=== PATIENT | female | born 1960 | race Asian ===

== ENCOUNTER 2017-05-29 12:08 | Emergency (ER) | payer BC ==
[~2017-05-29] VITALS: Ht 152.4 cm; Wt 48.3 kg
[2017-05-29 12:12] VITALS: TEMP 36.9; Ht 152.4 cm; Wt 48.3 kg
[2017-05-29] MEDS ORDERED: IBUPROFEN 200 MG TAB PO STA (13:51)
[2017-05-29] MEDS ORDERED: ACETAMINOPHEN 500 MG TAB PO STA (13:51)
--- NOTE | 2017-05-29 14:45 | EMERGENCY ROOM VISIT NOTE ---
History Report prepared by Agustina: Shameka Esteban Under the Supervision of: Dr. Luiz Ayers M.D. First contact with patient: 12:41 Chief Complaint: HEAD PAIN Stated Complaint: EYE PAIN History of Present Illness The patient is a 56 year old female with no significant past medical history who presents to the ED with a cc of headache beginning 2 weeks ago. Initially her eyes were feeling dry and she was using Refresh eye drops without any relief. She developed a headache in the front of her head and pressure in her eyes. Her pressure is worse behind her left eye. The patient reports burning pain in her eyes and blurry vision. She rates her pain as a 5/10 in severity. She was seen at [facility] and sent to the ED for further evaluation. She does wear glasses. She does not wear contacts. Source of History: patient Onset: 2 weeks ago Position: head Symptom Intensity: 5/10 Quality: pressure, burning Timing: worsening Note: Pt has bilateral eye pain/pressure and blurry vision. Review of Systems See HPI for pertinent positives and negatives. A total of ten systems were reviewed and were otherwise negative. Past Medical & Surgical Medical Problems: (1) No significant active problems Family History No pertinent history stated. Social History Smoking Status: Never Smoker Smokeless Tobacco Use: No Alcohol Use: none Drug Use: none Current/Historical Medications No Active Prescriptions or Reported Meds Allergies Coded Allergies: No Known Allergies (Unverified , 05/29/17) Physical Exam Vital Signs Date Time Temp Pulse Resp B/P (MAP) Pulse Ox O2 Delivery O2 Flow Rate FiO2 05/29/17 14:51 55 18 122/71 100 05/29/17 12:12 36.9 72 18 122/79 99 Room Air Physical Exam GENERAL: Awake, alert, anxious-appearing, tearful, NAD HENT: Normocephalic, atraumatic. EYES: Normal conjunctiva. Sclera non-icteric. Exotropic left eye noted, no APD, PERRL, EOMI, vision intact, no visual field deficits, no hyphema, no hypopyon. Vision 20/50 in left eye, pressure 18 in left eye. Vision 20/20 in right eye, pressure 11 in right eye. No periorbital swelling, no proptosis. NECK: Supple. No nuchal rigidity. FROM. RESPIRATORY: CTAB, no rhonchi, wheezing, crackles CARDIAC: RRR, no MRG ABDOMEN: Soft, NTND, BS+ MSK: No chest wall TTP, no LE edema NEURO: GCS 15, CN 2-12 intact, moves all 4s on command. Good upper and lower extremity strength, no sensory deficits SKIN: No rash or jaundice noted. Medical Decision & Procedures Medications Administered Medications (Trade) Dose Ordered Sig/Cherelle Route Start Time Stop Time Status Last Admin Dose Admin Ibuprofen (Advil Tab) 400 mg NOW STAT PO 05/29/17 13:51 05/29/17 13:52 DC 05/29/17 14:14 400 MG Acetaminophen (Tylenol Tab) 1,000 mg NOW STAT PO 05/29/17 13:51 05/29/17 13:52 DC 05/29/17 14:15 1,000 MG ED Course 1241: The patient was evaluated in room B6. A complete history and physical exam was performed. 1328: I reassessed the patient and checked the pressures in her eyes. Please see above for my findings. 1351: Tylenol 1000 mg PO, Advil 400 mg PO 1412: I discussed the patient's case with Dr. Esqueda of ophthalmology. He will follow up with the patient in the office tomorrow. 1429: I reassessed the patient. She is feeling better and resting comfortably. I discussed the results and treatment plan with the patient. I answered all pertaining questions that she had. She expressed understanding and verbalized agreement. The patient will be discharged home. Medical Decision The patient is a 56 year old female with no significant past medical history who presents to the ED with a cc of headache beginning 2 weeks ago. Differential diagnoses includes conjunctivitis, iritis, glaucoma, retinal or vitreous detachment, senescent visual changes, pseudotumor. Patient was seen and evaluated the bedside. Patient was very re-anxious and concerned about vision loss. Patient stated she had felt a pressure behind her eyes. She denies any recent change in medications. Patient had had a change in her prescription back in August. On exam patient had no APD, EOM were intact, no fixed pupil, not proptotic, no hyphema or hypopyon. Patient has no visual field deficits. 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 Patient was 20/50 in the left eye and 20/20 in the right eye. Given all these signs patient also did have pressures of 11 in the right and 18 in the left. Less likely to be stroke given her lack of other symptoms and just patient changes. Patient less likely to be glaucoma she is not had a fixed pupil or photophobia with normal pressures. Less likely to be a conjunctivitis. Less likely to be pseudotumor cerebri as the patient does not have abnormal pressures the patient is not obese. Patient has no focal neuro deficit. I did speak with the physician that she is to see tomorrow Dr. Garcia. He agreed nothing to do at this time and would see her in his clinic tomorrow patient was given strict follow-up, discharge, and return precautions. Patient agreed with plan of care and was safely discharged home Medication Reconcilliation Current Medication List: was personally reviewed by me Blood Pressure Screening Patient's blood pressure: Normal blood pressure Consults Time Called: 1408 Consulting Physician: Dr. Esqueda Returned Call: [phone] I discussed the patient's case with Dr. Esqueda of ophthalmology. He will follow up with the patient in the office tomorrow. Impression Primary Impression: Eye pressure Additional Impression: Headache Scribe Attestation The scribe's documentation has been prepared under my direction and personally reviewed by me in its entirety. I confirm that the note above accurately reflects all work, treatment, procedures, and medical decision making performed by me. Departure Information Dispostion Home / Self-Care Prescriptions No Active Prescriptions or Reported Meds Referrals No Doctor, Assigned (PCP) Patient Instructions My [facility] Additional Instructions Please return to the emergency department if you have worsening or recurrent symptoms not amenable to at-home treatment. Please call for a follow-up appointment with her primary care physician. Please take your medications as prescribed. If you have other concerns and/or complaints please feel free to also call your primary care physician's office or return the ED for further evaluation, management, and treatment. Please keep your eye appointment tomorrow. You have been examined and treated today on an emergency basis only. This is not a substitute for, or an effort to provide, complete comprehensive medical care. It is impossible to recognize and treat all injuries or illnesses in a single emergency department visit. It is therefore important that you follow up closely with [facility]. Call as soon as possible for an appointment. Thank you for your time and consideration. I look forward to speaking with you again soon. Please don't hesitate to call us if you have any questions. Problem Qualifiers Additional Impression: Headache Headache type: unspecified Headache chronicity pattern: acute headache Intractability: not intractable Qualified Codes: R51 - Headache
[2017-05-29 14:51] VITALS: BP 122/71; PULSE 55; O2SAT 100
== END 2017-05-29 14:52 | disposition home or self-care (01) ==
LOC: C.EDB 12:09
DX: R51 Headache (principal); H53.8 Other visual disturbances; H57.13 Ocular pain, bilateral

== ENCOUNTER 2017-07-05 12:38 | Observation (INO) | payer BC ==
[~2017-07-05] VITALS: Ht 154.9 cm; Wt 47.8 kg
--- NOTE | 2017-07-05 13:02 | EMERGENCY ROOM VISIT NOTE ---
History Report prepared by Agustina: Jayesh Little Under the Supervision of: Dr. Ab Shen D.O. First contact with patient: 12:53 Chief Complaint: CHEST PAIN Stated Complaint: CHEST PAIN, SENT BY History of Present Illness The patient is a 56 year old female who presents to the Emergency Room with complaints of centralized chest pain that began 4 hours ago. At this time, she began to feel as if her heart was "speeding up" while experiencing palpitations. This lasted for about 2 minutes, and then her pain began. She states that her pain is unchanged with exertion, movement, or breathing. She denies any leg pain or swelling. She notes that she feels mildly short of breath. She took 2 Aspirin this morning, one two hours ago and another 1 hour ago. She denies any medical problems and does not take any medications. Source of History: patient Onset: 4 hours ago Position: chest Symptom Intensity: moderate Quality: ache Timing: constant Associated Symptoms: + SOB Note: She denies any leg pain or swelling. Review of Systems See HPI for pertinent positives & negatives. A total of 10 systems reviewed and were otherwise negative. Past Medical & Surgical Medical Problems: (1) No significant active problems Family History Patient reports no known family medical history. Social History Smoking Status: Never Smoker Smokeless Tobacco Use: No Alcohol Use: none Drug Use: none Current/Historical Medications No Active Prescriptions or Reported Meds Allergies Coded Allergies: No Known Allergies (Unverified , 07/05/17) Physical Exam Vital Signs Date Time Temp Pulse Resp B/P (MAP) Pulse Ox O2 Delivery O2 Flow Rate FiO2 07/05/17 14:01 90 16 142/80 100 Nasal Cannula 2.0 07/05/17 13:18 73 07/05/17 13:09 95 Room Air 07/05/17 13:09 95 Room Air 07/05/17 13:09 95 Room Air 07/05/17 12:43 36.5 87 20 117/80 100 Room Air Physical Exam GENERAL: Patient is awake, alert, and in no acute distress. Patient is resting comfortably and showing no signs of anxiety EYES: The conjunctivae are clear. The pupils are round and reactive. EARS, NOSE, MOUTH AND THROAT: The nose is without any evidence of any deformity. Mucous membranes are moist tongue is midline NECK: The neck is nontender and supple. RESPIRATORY: Normal respiratory effort is noted there is no evidence of wheezing rhonchi or rales CARDIOVASCULAR: Regular rate and rhythm noted there no murmurs rubs or gallops normal S1 normal S2 GASTROINTESTINAL: The abdomen is soft. Bowel sounds are present in all quadrants. Abdomen is nontender MUSCULOSKELETAL/EXTREMITIES: There is no evidence of gross deformity full range of motion is noted in the hips and shoulders SKIN: There is no obvious evidence of any rash. There are no petechiae, pallor or cyanosis noted. NEUROLOGIC: Patient is awake alert and oriented x3. Medical Decision & Procedures ER Provider Diagnostic Interpretation: Radiology results as stated below per my review and radiologist interpretation: CHEST ONE VIEW PORTABLE CLINICAL HISTORY: Atypical chest pain COMPARISON STUDY: No previous studies for comparison. FINDINGS: The cardiac and mediastinal contours are normal. There is no evidence of focal pulmonary consolidation. There is no evidence of failure. No pleural effusions are visualized.[ IMPRESSION: No active disease in the chest. Electronically signed by: Michael Schuler M.D. 07/05/2017 2:13 PM Dictated Date/Time: 07/05/2017 2:13 PM Laboratory Results Test 07/05/17 13:00 07/05/17 13:06 Prothrombin Time 10.5 SECONDS (9.0-12.0) Prothromb Time International Ratio 1.0 (0.9-1.1) Estimated Average Glucose 108 mg/dl Hemoglobin A1c 5.4 % (4.5-5.6) Direct Bilirubin 0.1 mg/dl (0-0.2) Total Creatine Kinase 152 U/L (26-192) Creatine Kinase MB 1.8 ng/ml (0.5-3.6) Creatine Kinase MB Ratio 1.2 (0-3.0) Triglycerides Level 105 mg/dl (0-150) Cholesterol Level 268 mg/dl (0-200) HDL Cholesterol 89 mg/dl LDL Cholesterol, Calculated 158 mg/dl VLDL Cholesterol, Calculated 21 mg/dl Cholesterol/HDL Ratio 3.0 Lipase 116 U/L (73-393) Thyroid Stimulating Hormone (TSH) 1.200 uIu/ml (0.300-4.500) Human Chorionic Gonadotropin, Qual NEG (NEG) Bedside D-Dimer 219 ng/mlFEU (0-450) Bedside Troponin I 0.230 ng/ml (0-0.045) Laboratory results per my review. Medications Administered Medications (Trade) Dose Ordered Sig/Cherelle Route Start Time Stop Time Status Last Admin Dose Admin Nitroglycerin (Nitro-Dur 0.6 Mg/Hr Patch) 1 patch NOW STAT TD 07/05/17 14:31 07/06/17 10:23 DC 07/05/17 14:46 1 PATCH Potassium Chloride (Klor-Con M10) 40 meq NOW STAT PO 07/05/17 14:26 07/05/17 15:00 DC 07/05/17 15:39 40 MEQ ECG Indication: chest pain Rate (beats per minute): 73 Rhythm: normal sinus Findings: no ectopy, other (No acute STS abnormalities) Comparison ECG Date: no prior available ED Course 1253: The patient was evaluated in room B3B. A complete history and physical examination were performed. 1347: Upon reevaluation, the patient is resting. I discussed results and treatment plan with her. She verbalizes agreement and understanding. I spoke with Faith GONZÁLES of the [facility]. The patient will be evaluated for further management and care. Medical Decision Differential diagnosis: Etiologies such as cardiac ischemia, aortic dissection, pulmonary embolism, pneumonia, pneumothorax, musculoskeletal, infections, pericarditis, myocarditis , esophageal rupture, gastrointestinal, as well as others were entertained. Nursing notes reviewed. The patient is a 56-year-old female who presented to the emergency department for an episode which occurred earlier. The patient describes an episode of palpitations which was followed by a pressure or burning sensation in her chest. The patient was not found have dysrhythmia. Her EKG did not show any acute ischemic changes however her initial troponin was elevated. The patient had no discomfort at this time. She was treated with aspirin previously and also given nitroglycerin in the emergency department. I discussed the patient's laboratory and radiographic studies [facility] They have agreed to evaluate the patient in the emergency department for further management and disposition. At this time I do feel the patient's condition and presentation could be consistent with an acute coronary syndrome. Medication Reconcilliation Current Medication List: was personally reviewed by me Blood Pressure Screening Patient's blood pressure: Normal blood pressure Blood pressure disposition: Did not require urgent referral Consults Time Called: 1345 Consulting Physician: Faith GOZNÁLES - [facility] Returned Call: [phone] I discussed the patient's case with her. The patient will be evaluated for further management. Impression Primary Impression: Chest pain Additional Impressions: Elevated troponin Palpitations Scribe Attestation The scribe's documentation has been prepared under my direction and personally reviewed by me in its entirety. I confirm that the note above accurately reflects all work, treatment, procedures, and medical decision making performed by me. Departure Information Dispostion Being Evaluated By Hospitalist Prescriptions No Active Prescriptions or Reported Meds Referrals Azalia Rain DO (PCP) Patient Instructions My [facility] Problem Qualifiers Primary Impression: Chest pain Chest pain type: unspecified Qualified Codes: R07.9 - Chest pain, unspecified
[2017-07-05 13:19] LABS: BASO % 0.2 %; BASO ABS # 0.01 K/uL (0-0.2); COMPLETE YES; EOS % 0.4 %; IG% 0.2 %; LYMPH % 17.8 %; LYMPH ABS # 0.87 K/uL (1.2-3.4); MEAN CELL VOLUME 96.2 fL (80-100); MEAN CORPUSCULAR HGB CONC 33.3 g/dl (32-36); MONO % 3.9 %; NEUT % 77.5 %; PLATELET COUNT 176 K/uL (130-400); RED BLOOD COUNT 4.16 M/uL (4.2-5.4); WHITE BLOOD COUNT 4.89 K/uL (4.8-10.8)
[2017-07-05 13:26] LABS: POINT OF CARE TROPONIN I 0.23 ng/ml (0-0.045)
[2017-07-05 13:32] LABS: PROTHROMBIN TIME (PATIENT) 10.5 SECONDS (9.0-12.0)
[2017-07-05 13:33] LABS: BUN/CREATININE RATIO 19.8 (10-20); CALCIUM 9.2 mg/dl (8.5-10.1); CREATININE 0.89 mg/dl (0.60-1.20); POTASSIUM 3.5 mmol/L (3.5-5.1)
[2017-07-05 13:39] LABS: CKMB/CK RATIO 1.2 (0-3.0)
[2017-07-05 13:48] LABS: PREG INTERNAL NEGATIVE QC NEG CLEAR BACKGROUND; PREG INTERNAL POSITIVE QC POS CONTROL LINE
--- NOTE | 2017-07-05 14:14 | DIAGNOSTIC IMAGING REPORT ---
CHEST ONE VIEW PORTABLE CLINICAL HISTORY: Atypical chest pain COMPARISON STUDY: No previous studies for comparison. FINDINGS: The cardiac and mediastinal contours are normal. There is no evidence of focal pulmonary consolidation. There is no evidence of failure. No pleural effusions are visualized.[ IMPRESSION: No active disease in the chest. Electronically signed by: Michael Schuler M.D. 07/05/2017 2:13 PM Dictated Date/Time: 07/05/2017 2:13 PM
[2017-07-05] MEDS ORDERED: POTASSIUM CHLORIDE 10 MEQ TABCR PO STA (14:26)
[2017-07-05] MEDS ORDERED: NITROGLYCERIN 0.6 MG/HR PATCH TD STA (14:31)
--- NOTE | 2017-07-05 15:26 | ECHOCARDIOGRAM REPORT ---
*NOTICE TO RECEIVING CONSTITUTION PARTY AGENCY This information is strictly Confidential and protected under [place] law. [place] law prohibits you from making any further disclosure of this information unless further disclosure is expressly permitted by the written consent of the person to whom it pertains or is authorized by law. A general authorization for the release of medical or other information is not sufficient for this purpose. Hospital accepts no responsibility if the information is made available to any other person, INCLUDING THE PATIENT. Interpretation Summary * Name: FABIOLA MAJOR Study Date: 07/05/2017 02:28 PM BP: 142/80 mmHg * Patient Location: .ED HR: 90 * : 1960 (M/d/yyyy) Gender: Female Height: 61 in * Age: 56 yrs Ethnicity: Weight: 106 lb * Ordering Physician: Richard Rodas * Referring Physician: Azalia Rain * Performed By: Elis Ruiz RDCS * * Reason For Study: CHEST PAIN * BSA: 1.4 m2 * -- Conclusions -- * Normal LV chamber size and wall thickness. * Normal LV systolic function, EF 65-70%. * No segmental left ventricular wall motion abnormalities are noted. * Grade I diastolic dysfunction. * Mild mitral regurgitation. * Trace tricuspid regurgitation. Procedure Details * A complete two-dimensional transthoracic echocardiogram was performed (2D, M-mode, Doppler and color flow Doppler). Left Ventricle * The left ventricle is normal in size. * There is normal left ventricular wall thickness. * Ejection Fraction = 65-70%. * Left ventricular systolic function is normal. * No segmental left ventricular wall motion abnormalities are noted. * The left ventricular wall motion is normal. Right Ventricle * The right ventricular cavity size is normal (basal dimension <4.2 cm in right ventricular apical 4-chamber view). * The right ventricular systolic function is normal as assessed by tricuspid annular plane systolic excursion (TAPSE) (normal >1.5 cm). Atria * The left atrial size is normal. * Right atrial size is normal. * No ASD detected; PFO is not assessed. Mitral Valve * The mitral valve anatomy is normal. * There is no mitral valve stenosis. * There is mild mitral regurgitation. Tricuspid Valve * The tricuspid valve anatomy is normal. * There is no tricuspid stenosis. * There is trace tricuspid regurgitation. Aortic Valve * The aortic valve is not well visualized. * No hemodynamically significant valvular aortic stenosis. * There is no significant aortic regurgitation. Pulmonic Valve * The pulmonary valve is not well seen, but the Doppler examination is normal without significant regurgitation or stenosis. Great Vessels * The aortic root and proximal ascending aorta are normal sized. Pericardium/Pleural * There is no pericardial effusion. Left Ventricular Diastolic Function * Grade I diastolic dysfunction, (abnormal relaxation pattern). MMode 2D Measurements and Calculations IVSd 0.54 cm IVSs 1.1 cm LVIDd 4.2 cm LVIDs 2.6 cm LVPWd 0.74 cm LVPWs 1.3 cm IVS/LVPW 0.73 FS 38.0 % EDV(Teich) 78.7 ml ESV(Teich) 24.8 ml EF(Teich) 68.5 % EDV(cubed) 74.2 ml ESV(cubed) 17.7 ml EF(cubed) 76.1 % % IVS thick 109.9 % % LVPW thick 81.5 % LV mass(C)d 76.2 grams LV mass(C)dI 52.8 grams/m\S\2 LV mass(C)s 95.5 grams LV mass(C)sI 66.2 grams/m\S\2 CO(Teich) 4.0 l/min CI(Teich) 2.8 l/min/m\S\2 SV(Teich) 53.9 ml SI(Teich) 37.4 ml/m\S\2 CO(cubed) 4.2 l/min CI(cubed) 2.9 l/min/m\S\2 SV(cubed) 56.5 ml SI(cubed) 39.2 ml/m\S\2 ACS 1.8 cm LA dimension 2.8 cm asc Aorta Diam 2.8 cm LVOT diam 1.8 cm LVOT area 2.5 cm\S\2 LVAd ap4 18.2 cm\S\2 LVLd ap4 6.3 cm EDV(MOD-sp4) 45.2 ml LVAs ap4 9.3 cm\S\2 LVLs ap4 5.1 cm ESV(MOD-sp4) 14.6 ml EF(MOD-sp4) 67.7 % LVAd ap2 17.6 cm\S\2 LVLd ap2 6.5 cm EDV(MOD-sp2) 42.0 ml LVAs ap2 8.9 cm\S\2 LVLs ap2 5.1 cm ESV(MOD-sp2) 13.9 ml EF(MOD-sp2) 66.9 % CO(MOD-sp4) 2.3 l/min CI(MOD-sp4) 1.6 l/min/m\S\2 SV(MOD-sp4) 30.6 ml SI(MOD-sp4) 21.2 ml/m\S\2 CO(MOD-sp2) 2.1 l/min CI(MOD-sp2) 1.4 l/min/m\S\2 SV(MOD-sp2) 28.1 ml SI(MOD-sp2) 19.5 ml/m\S\2 Doppler Measurements and Calculations MV E max tammy 78.6 cm/sec MV A max tammy 96.5 cm/sec MV E/A 0.81 MV dec time 0.15 sec Ao V2 max 131.4 cm/sec Ao max PG 6.9 mmHg Ao max PG (full) 4.0 mmHg PREETI(V,A) 1.6 cm\S\2 PREETI(V,D) 1.6 cm\S\2 LV V1 max PG 2.9 mmHg LV V1 max 85.4 cm/sec MR max tammy 435.7 cm/sec MR max PG 75.9 mmHg PA V2 max 62.6 cm/sec PA max PG 1.6 mmHg TR max tammy 188.9 cm/sec
[2017-07-05 15:41] LABS: MAGNESIUM 2.6 mg/dl (1.8-2.4); THYROID STIMULATING HORMONE 1.2 uIu/ml (0.300-4.500)
[2017-07-05 15:58] VITALS: BP 104/69; PULSE 61; TEMP 36.7; O2SAT 97
[2017-07-05 16:00] VITALS: O2SAT 98
[2017-07-05] MEDS ORDERED: IV FLUIDS COMPLETED PRN (16:00)
--- NOTE | 2017-07-05 16:54 | History and Physical ---
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 Patient tried to alleviate symptoms by taking 325 mg of aspirin x 2. Patient was seen and evaluated in the ED and resolution of symptoms. Chest X ray negative. No evidence of tachycardia or arrhythmia. No obvious EKG changes suggestive of myocardial infarction with negative D-dimer, however has positive 1st troponin of 0.230. Echocardiogram performed. * Normal LV chamber size and wall thickness. * Normal LV systolic function, EF 65-70%. * No segmental left ventricular wall motion abnormalities are noted. * Grade I diastolic dysfunction. * Mild mitral regurgitation. * Trace tricuspid regurgitation. Cardiology consulted. Dr. Sibley recommended Nitro patch which was ordered. No heparin drip to be initiated at this time. Will continue to trend troponins. May consider heparin drip if troponins becomes elevated or exacerbation of symptoms. NPO after midnight for stress test on 07/06/17 Past Medical/Surgical History Medical Problems: (1) No significant active problems Status: Chronic Family History FH: myocardial infarction MOTHER Social History Smoking Status: Never Smoker Smokeless Tobacco Use: No Drug Use: none Multi-Drug Resistant Organisms History of MDRO: No Allergies Coded Allergies: No Known Allergies (Unverified , 07/05/17) Home Medications No Active Prescriptions or Reported Meds Review of Systems Constitutional: No fever Eyes: No worsening of vision ENT: No hearing loss Respiratory: + shortness of breath, No cough, No sputum, No wheezing Cardiovascular: + chest pain, + palpitations, No edema Abdomen: No pain, No nausea, No vomiting Musculoskeletal: No swelling Genitourinary - Female: No dysuria Neurologic: No numbness/tingling Psychiatric: No substance abuse Endocrine: No fatigue Hematologic / Lymphatic: No abnormal bleeding/bruising Integumentary: No rash Physical Exam Vital Signs Date Time Temp Pulse Resp B/P (MAP) Pulse Ox O2 Delivery O2 Flow Rate FiO2 07/05/17 15:58 36.7 61 16 104/69 (81) 97 Room Air 11/16/17 15:45 72 18 95/60 96 Room Air 07/05/17 15:45 72 18 95/60 96 07/05/17 14:46 73 14 105/70 100 Room Air 07/05/17 14:01 90 16 142/80 100 Nasal Cannula 2.0 07/05/17 13:18 73 07/05/17 13:09 95 Room Air 07/05/17 13:09 95 Room Air 07/05/17 13:09 95 Room Air 07/05/17 12:43 36.5 87 20 117/80 100 Room Air General Appearance: no apparent distress Head: normocephalic, atraumatic Eyes: normal inspection, EOMI, sclerae normal ENT: normal ENT inspection, hearing grossly normal, TMs normal, pharynx normal Neck: no JVD, no carotid bruits, trachea midline Respiratory/Chest: chest non-tender, lungs clear, normal breath sounds, no respiratory distress, no accessory muscle use Cardiovascular: regular rate, rhythm, no edema, no JVD, no murmur Abdomen/GI: normal bowel sounds, non tender, soft Back: normal inspection, no CVA tenderness, no muscle spasm, normal range of motion Extremities/Musculoskelatal: normal inspection, no calf tenderness, normal capillary refill, no pedal edema, normal range of motion Neurologic/Psych: no motor/sensory deficits, normal mood/affect, oriented x 3 Skin: normal color, warm/dry, no rash Diagnostics Laboratory Results Results Past 24 Hours Test 07/05/17 13:00 07/05/17 13:06 07/05/17 14:14 Range/Units White Blood Count 4.89 4.8-10.8 K/uL Red Blood Count 4.16 4.2-5.4 M/uL Hemoglobin 13.3 12.0-16.0 g/dL Hematocrit 40.0 37-47 % Mean Corpuscular Volume 96.2 80-100 fL Mean Corpuscular Hemoglobin 32.0 25-34 pg Mean Corpuscular Hemoglobin Concent 33.3 32-36 g/dl Platelet Count 176 130-400 K/uL Mean Platelet Volume 9.0 7.4-10.4 fL Neutrophils (%) (Auto) 77.5 % Lymphocytes (%) (Auto) 17.8 % Monocytes (%) (Auto) 3.9 % Eosinophils (%) (Auto) 0.4 % Basophils (%) (Auto) 0.2 % Neutrophils # (Auto) 3.79 1.4-6.5 K/uL Lymphocytes # (Auto) 0.87 1.2-3.4 K/uL Monocytes # (Auto) 0.19 0.11-0.59 K/uL Eosinophils # (Auto) 0.02 0-0.5 K/uL Basophils # (Auto) 0.01 0-0.2 K/uL RDW Standard Deviation 44.1 36.4-46.3 fL RDW Coefficient of Variation 12.7 11.5-14.5 % Immature Granulocyte % (Auto) 0.2 % Immature Granulocyte # (Auto) 0.01 0.00-0.02 K/uL Prothrombin Time 10.5 9.0-12.0 SECONDS Prothromb Time International Ratio 1.0 0.9-1.1 Activated Partial Thromboplast Time 25.5 21.0-31.0 SECONDS Partial Thromboplastin Ratio 1.0 Sodium Level 139 136-145 mmol/L Potassium Level 3.5 3.5-5.1 mmol/L Chloride Level 103 98-107 mmol/L Carbon Dioxide Level 28 21-32 mmol/L Anion Gap 8.0 3-11 mmol/L Blood Urea Nitrogen 18 7-18 mg/dl Creatinine 0.89 0.60-1.20 mg/dl Est Creatinine Clear Calc Drug Dose 54.5 ml/min Estimated GFR () 85.2 Estimated GFR (Non- 73.5 BUN/Creatinine Ratio 19.8 10-20 Random Glucose 113 70-99 mg/dl Calcium Level 9.2 8.5-10.1 mg/dl Magnesium Level 2.6 1.8-2.4 mg/dl Total Bilirubin 0.7 0.2-1 mg/dl Direct Bilirubin 0.1 0-0.2 mg/dl Aspartate Amino Transf (AST/SGOT) 20 15-37 U/L Alanine Aminotransferase (ALT/SGPT) 31 12-78 U/L Alkaline Phosphatase 79 45-117 U/L Total Creatine Kinase 152 26-192 U/L Creatine Kinase MB 1.8 0.5-3.6 ng/ml Creatine Kinase MB Ratio 1.2 0-3.0 Total Protein 7.2 6.4-8.2 gm/dl Albumin 4.3 3.4-5.0 gm/dl Triglycerides Level 105 0-150 mg/dl Cholesterol Level 268 0-200 mg/dl HDL Cholesterol 89 mg/dl LDL Cholesterol, Calculated 158 mg/dl VLDL Cholesterol, Calculated 21 mg/dl Cholesterol/HDL Ratio 3.0 Lipase 116 73-393 U/L Thyroid Stimulating Hormone (TSH) 1.200 0.300-4.500 uIu/ml Human Chorionic Gonadotropin, Qual NEG NEG Bedside D-Dimer 219 0-450 ng/mlFEU Bedside Troponin I 0.230 0-0.045 ng/ml Diagnostic Radiology CXR The cardiac and mediastinal contours are normal. There is no evidence of focal pulmonary consolidation. There is no evidence of failure. No pleural effusions are visualized. 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 Patient tried to alleviate symptoms by taking 325 mg of aspirin x 2. Patient was seen and evaluated in the ED and resolution of symptoms. Chest X ray negative. No evidence of tachycardia or arrhythmia. No obvious EKG changes suggestive of myocardial infarction with negative D-dimer, however has positive 1st troponin of 0.230. Echocardiogram performed. * Normal LV chamber size and wall thickness. * Normal LV systolic function, EF 65-70%. * No segmental left ventricular wall motion abnormalities are noted. * Grade I diastolic dysfunction. * Mild mitral regurgitation. * Trace tricuspid regurgitation. Cardiology consulted. Dr. Sibley recommended Nitro patch which was ordered. No heparin drip to be initiated at this time. Will continue to trend troponins. May consider heparin drip if troponins becomes elevated or exacerbation of symptoms. NPO after midnight for stress test on 07/06/17 Electrolytes Serum Magnesium 2.6 within normal limits Serum potassium 3.5, given 40 meq PO potassium DVT ppx: SCDs for now Full Code, observation on telemetry Level of Care Telemetry Resuscitation Status FULL RESUSCITATION VTE Prophylaxis VTE Risk Assessment Done? Y/N: Yes Risk Level: Moderate
[2017-07-05 17:09] VITALS: BP 104/69; PULSE 61; TEMP 36.7; O2SAT 97; Ht 154.9 cm; Wt 47.8 kg
[2017-07-05 19:16] VITALS: BP 95/60; PULSE 63; TEMP 36.9; O2SAT 98
--- NOTE | 2017-07-05 19:25 | CARDIOLOGY CONSULTATION ---
DATE OF CONSULTATION: 07/05/2017 CONSULTATION REQUESTED BY: Dr. Richard Rodas. REASON FOR CONSULTATION: Chest pain. HISTORY OF PRESENT ILLNESS: Mrs. Rivero is a very pleasant 56-year-old woman who presented to [facility] today with a complaint of chest pain. 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 She states that while she was cutting vegetables all of a sudden she felt her heart started beating very fast in her chest. She states that it lasted for about 10 minutes and afterwards she developed some chest discomfort. While her heart was racing, she described it was thumping sensation in her chest and she denied any associated symptoms with it, specifically denied any associated chest pain, shortness of breath, lightheadedness, dizziness or syncope. She states not until the palpitations subsided that she started to feel chest discomfort. She describes the chest discomfort as a dull achy, as a dull pressure sensation in the center of her chest. It does not radiate. She states that once it started she took an aspirin and waited an hour, the discomfort persisted. She took another aspirin and went into her family physician's office. She was evaluated there but no notes are available at this time, and the patient was directed to the Emergency Department. In the Emergency Department, initial workup was unremarkable for EKG being normal and troponin being 0.2 and she was admitted for chest discomfort. The patient was seen and examined in the Emergency Department. At this point she is pain free and states that she is just very worried. She does admit that she has anxiety and she has had chest pain with anxiety in the past but states that this felt different. PAST SURGICAL HISTORY: Denies. MEDICAL ILLNESSES: Anxiety. FAMILY HISTORY: Remarkable for her mother developed heart disease at a later age. She is unsure of the heart condition, but she states she is otherwise at 85 years old in good health. SOCIAL HISTORY: She denies any alcohol, tobacco or recreational drug use. She is . She has 2 children, ages 21 and 15 who are both in good health. 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 She exercises infrequently. ALLERGIES: No known drug allergies. MEDICATIONS AN OUTPATIENT: Premarin cream. REVIEW OF SYSTEMS: As per HPI, all other review of systems reviewed and negative at this time. PHYSICAL EXAMINATION: VITALS: Temperature 36.7, pulse 61, respiratory rate 12, blood pressure 104/69. GENERAL: Awake, alert, oriented x3, mildly anxious during examination but no acute distress. HEENT: Normocephalic, atraumatic. Pupils equal, round, and reactive to light and accommodation. Extraocular muscles intact. Anicteric sclerae. Moist mucous membranes. NECK: No JVD, no bruit. CARDIOVASCULAR: Regular. No S4. Normal S1 and S2. No S3. No murmurs, rubs or gallops. PULMONARY: Clear to auscultation bilaterally. No rales, rhonchi, or wheezing. ABDOMEN: Bowel sounds x4, soft. No rebound, guarding, tenderness, no organomegaly. EXTREMITIES: No clubbing, cyanosis or edema. +2 pedal pulses bilaterally. SKIN: Warm and dry. TEST RESULTS AND LABORATORY STUDIES OF SIGNIFICANCE: Sodium 139, potassium 3.5, BUN 18, creatinine 0.9. Initial troponin of 0.2. CK of 152. A 12-lead EKG performed in the Emergency Department independently during this time shows normal sinus rhythm with sinus arrhythmia at 73 beats per minute, normal axis, normal intervals, normal study. A 2D echocardiogram was read as normal LV chamber size and wall thickness, normal LV systolic function without regional wall motion abnormalities, EF 65-70%, no segmental left ventricular wall motion abnormalities were noted, grade 1 diastolic dysfunction, mild mitral regurgitation, trace tricuspid regurgitation. IMPRESSION: 1. Palpitations. 2. Chest discomfort. RECOMMENDATIONS: It was my pleasure to see Mrs. Rivero in consultation today. From a cardiac standpoint, my suspicion is that the palpitations lead to some anxiety which then resulted in her chest discomfort. At this time, she has been in normal sinus rhythm on telemetry monitoring, any arrhythmias, so at this time we will admit her to telemetry. She will be made n.p.o. after midnight and will plan on stress test in the a.m., both to look for an inducible ischemia and for any inducible arrhythmias.
[2017-07-05 20:00] VITALS: O2SAT 98
--- NOTE | 2017-07-05 20:05 | Progress Note ---
Progress Note Date of Service Jul 05, 2017. Progress Note Toponins elevated from 0.230 to 1.1. Patient seen and examined. Was sleeping when awakened. Patient reports that she is feeling better than before. EKG obtained and no obvious ST elevations. However as per prior discussion with cardiology service, since troponins rising, will start heparin drip for NSTEMI.
[2017-07-05] MEDS ORDERED: HEPARIN 25,000 UNIT/500ML D5W 500 ML IV PRN (20:15)
[2017-07-05 23:52] VITALS: BP 101/68; PULSE 62; TEMP 36.4; O2SAT 98
[2017-07-06 03:29] VITALS: BP 93/55; PULSE 61; TEMP 36.5; O2SAT 99
[2017-07-06 03:39] LABS: BASO % 0.2 %; BASO ABS # 0.01 K/uL (0-0.2); COMPLETE YES; EOS % 1.7 %; HEMATOCRIT 35.8 % (37-47); IG% 0.2 %; LYMPH ABS # 1.38 K/uL (1.2-3.4); MEAN CORPUSCULAR HEMOGLOBIN 32.2 pg (25-34); MEAN CORPUSCULAR HGB CONC 33.5 g/dl (32-36); MEAN PLATELET VOLUME 8.9 fL (7.4-10.4); MONO % 5.3 %; NEUT % 59.6 %; PLATELET COUNT 159 K/uL (130-400); RED BLOOD COUNT 3.73 M/uL (4.2-5.4); WHITE BLOOD COUNT 4.18 K/uL (4.8-10.8)
[2017-07-06 03:56] LABS: PARTIAL THROMBOPLASTIN RATIO 2.7
[2017-07-06 04:04] LABS: CALCIUM 8.7 mg/dl (8.5-10.1); CREATININE 0.88 mg/dl (0.60-1.20); MAGNESIUM 2.4 mg/dl (1.8-2.4); POTASSIUM 3.9 mmol/L (3.5-5.1)
[2017-07-06 04:09] LABS: ALB/GLOB RATIO 1.2 (0.9-2)
[2017-07-06 05:26] VITALS: BP 104/71; PULSE 68; O2SAT 100
[2017-07-06 05:51] LABS: ESTIMATED AVERAGE GLUCOSE 108 mg/dl; HA1C FLAG Normal (Normal)
[2017-07-06 07:55] VITALS: BP 96/63; PULSE 66; TEMP 36.8; O2SAT 98
[2017-07-06 08:22] LABS: PARTIAL THROMBOPLASTIN RATIO 2.9
--- NOTE | 2017-07-06 10:22 | Cardiology Follow-Up ---
Subjective Subjective Date of Service: Jul 06, 2017. Pt evaluation today including: conversation w/ patient, physical exam, chart review, lab review, review of studies, review of inpatient medication list Additional Details: Pt seen and examined, states that she feels well. Only slight, transient discomfort this AM but fleeting. Denies sob, palpitations, lightheadedness or dizziness. Tele reviewed: sinus rhythm without arrhythmia or significant ectopy. Problem List Medical Problems: (1) Chest pain Status: Acute (2) Elevated troponin Status: Acute (3) Eye pressure Status: Acute (4) Headache Status: Acute (5) Palpitations Status: Acute Review of Systems Respiratory: No see HPI, No cough, No sputum, No wheezing, No shortness of breath, No dyspnea on exertion, No dyspnea at rest, No hemoptysis, No problem reported Cardiac: + chest pain, No see HPI, No orthopnea, No PND, No edema, No claudication, No palpitations, No problem reported Objective Vital Signs Last Vital Signs Documentation Date Time Temp Pulse Resp B/P (MAP) Pulse Ox O2 Delivery O2 Flow Rate FiO2 07/06/17 08:00 Room Air 07/06/17 07:55 36.8 66 14 96/63 (74) 98 07/05/17 14:01 2.0 Physical Exam: General Appearance: WD/WN, no apparent distress Eyes: bilateral eyes normal inspection, bilateral eyes PERRL, bilateral eyes EOMI ENT: normal ENT inspection, hearing grossly normal, pharynx normal Neck: supple, no adenopathy, thyroid normal, no JVD, no carotid bruits, trachea midline Respiratory/Chest: chest non-tender, lungs clear, normal breath sounds, no respiratory distress, no accessory muscle use Cardiovascular: regular rate, rhythm, no edema, no gallop, no JVD, no murmur Abdomen: normal bowel sounds, non tender, soft, no organomegaly Extremities: normal range of motion, non-tender, normal inspection, no pedal edema, no calf tenderness Neurologic/Psychiatric: box inspector II-XII nml as tested, no motor/sensory deficits, alert, normal mood/affect, oriented x 3 Skin: normal color, warm/dry, no rash Lymphatic: no adenopathy Assessment and Plan 1. chest pain resolved nonischemic stress echocardiogram 2. palpitations likely the nidus of the event no arrhythmia on monitor nor with stress testing ?SVT no new meds at this time will see as outpatient in 1-2 weeks and will likely place on monitor at that time my office will call to arrange follow up counseled to return to ED with further symptoms in attempt to catch on monitor 3. troponin elevation likely from tachycardic event no ischemic findings on stress echo could consider coronary CT as outpatient if recurrence of discomfort given lack of risk factors ok to d/c to home from cardiac standpoint
--- NOTE | 2017-07-06 10:48 | Discharge Instructions ---
Discharge Instructions Date of Service Jul 06, 2017. Admission Reason for Admission: Chest Pain, Elevated Troponin Discharge Discharge Diagnosis / Problem: chest pain, non-cardiac etiology Discharge Goals Goal(s): Prevent Disease Progression Activity Recommendations Activity Limitations: per Instructions/Follow-up section . Instructions / Follow-Up Instructions / Follow-Up Please return to ER if symptoms return You will need to contact [facility] Cardiology to set up a follow-up visit with Dr. Georgi Sibley in 1-2 weeks. You will be getting set up with an event monitor at this appointment. You have a follow-up appointment scheduled with Dr. Rain (PCP) on , 07/10 @ 10:45am for follow-up from this hospitalization. Please bring all paperwork with you to this appointment. It was a pleasure taking care of you! Call if you have any questions or problems. You can reach a [facility] hospitalist on duty at [facility] 24 hours a day by calling [phone]. Take care of yourself. Sierra Paige, [facility] Hospitalist Current Hospital Diet Patient's current hospital diet: AHA Diet (Heart Healthy) Discharge Diet Recommended Diet: Regular Diet Procedures Procedures Performed: stress echo-no inducible ischemia Pending Studies Studies pending at discharge: no Laboratory Results Hemoglobin A1c Test 07/05/17 13:00 Range/Units Estimated Average Glucose 108 mg/dl Hemoglobin A1c 5.4 4.5-5.6 % Lipid Panel Test 07/05/17 13:00 Range/Units Triglycerides Level 105 0-150 mg/dl Cholesterol Level 268 H 0-200 mg/dl HDL Cholesterol 89 mg/dl Cholesterol/HDL Ratio 3.0 LDL Cholesterol, Calculated 158 mg/dl Medical Emergencies . Who to Call and When: Medical Emergencies: If at any time you feel your situation is an emergency, please call 911 immediately. . Non-Emergent Contact Non-Emergency issues call your: Primary Care Provider . . "Provider Documentation" section prepared by Sierra Paige. . VTE Core Measure Inpt VTE Proph given/why not?: Other Anticoagulation (heparin drip)
--- NOTE | 2017-07-06 11:03 | EXERCISE STRESS ECHO ---
*NOTICE TO RECEIVING CONSTITUTION PARTY AGENCY This information is strictly Confidential and protected under [place] law. [place] law prohibits you from making any further disclosure of this information unless further disclosure is expressly permitted by the written consent of the person to whom it pertains or is authorized by law. A general authorization for the release of medical or other information is not sufficient for this purpose. Hospital accepts no responsibility if the information is made available to any other person, INCLUDING THE PATIENT. Interpretation Summary * Name: FABIOLA MAJOR Study Date: 07/06/2017 09:58 AM BP: 102/60 mmHg * Patient Location: C.2T\S\E222\S\1 HR: 61 * : 1960 (M/d/yyyy) Gender: Female Height: 61 in * Age: 56 yrs Ethnicity: Weight: 106 lb * Ordering Physician: Richard Rodas * Referring Physician: Azalia Rain * Performed By: Iesha Wilhelm RCS * * Reason For Study: CHEST PAIN / ELEVATED TROPONIN * BSA: 1.4 m2 * -- Conclusions -- * Nonischemic exercise stress echocardiogram. * Equivocal EKG changes with 1mm ST segment depressions in the lateral leads but no inducible wall motion abnormaities on imaging. * No arrhythmias. * Normal HR and BP response to exercise. * Chest pain and palpitation symptoms were not reproduced with exercise. * Above average exercise tolerance. Procedure Details * ECHOEX, CPT #22763 Stress Parameters * The stress portion of this study was personally supervised by the undersigned interpreting physician. * Rest heart rate was '61' BPM. * Rest blood pressure was '102/60' * Maximum heart rate achieved was 169 bpm. * Maximum heart rate was 101 % of maximum age-predicted heart rate. * Maximum blood pressure was '126/61' * Total exercise time was '08:31' * Maximum exercise MET level achieved was '10.10' METS * Maximum treadmill speed was '3.40' miles per hour. * Maximum treadmill elevation was '14.00'% grade.
[2017-07-06 11:06] VITALS: BP 96/63; PULSE 66; TEMP 36.8; O2SAT 98
--- NOTE | 2017-07-08 18:18 | Discharge Summary ---
Discharge Summary Date of Service Jul 08, 2017. Discharge Summary Admission Date: Jul 05, 2017 at 14:36 Discharge Date: Jul 06, 2017 Discharge Disposition: Home Principal Diagnosis: Chest pain Palpitations Elevated troponin Anxiety Procedures: Stress echo-negative for inducible ischemia. Vaccinations: None. Consultations: Cards Pending Studies/Follow-Up: see instructions below. 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 Patient tried to alleviate symptoms by taking 325 mg of aspirin x 2. Patient was seen and evaluated in the ED and resolution of symptoms. Chest X ray negative. No evidence of tachycardia or arrhythmia. No obvious EKG changes suggestive of myocardial infarction with negative D-dimer, however has positive 1st troponin of 0.230. Echocardiogram performed. * Normal LV chamber size and wall thickness. * Normal LV systolic function, EF 65-70%. * No segmental left ventricular wall motion abnormalities are noted. * Grade I diastolic dysfunction. * Mild mitral regurgitation. * Trace tricuspid regurgitation. Cardiology consulted. Dr. Sibley recommended Nitro patch which was ordered. No heparin drip to be initiated at this time. Will continue to trend troponins. May consider heparin drip if troponins becomes elevated or exacerbation of symptoms. NPO after midnight for stress test on 07/06/17 Physical Exam (per Admitting): General Appearance: no apparent distress Head: normocephalic, atraumatic Eyes: normal inspection, EOMI, sclerae normal ENT: normal ENT inspection, hearing grossly normal, TMs normal, pharynx normal Neck: no JVD, no carotid bruits, trachea midline Respiratory/Chest: chest non-tender, lungs clear, normal breath sounds, no respiratory distress, no accessory muscle use Cardiovascular: regular rate, rhythm, no edema, no JVD, no murmur Abdomen/GI: normal bowel sounds, non tender, soft Back: normal inspection, no CVA tenderness, no muscle spasm, normal range of motion Extremities/Musculoskelatal: normal inspection, no calf tenderness, normal capillary refill, no pedal edema, normal range of motion Neurologic/Psych: no motor/sensory deficits, normal mood/affect, oriented x 3 Skin: normal color, warm/dry, no rash Hospital Course 56 yo F presented to the ER with 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 This was followed by strong palpitations and continued discomfort. She took some aspirin and went to her PCP, where she was directed to the ER. Initial workup revealed an unremarkable EKG and a tropinin of 0.2. She was pain-free in the ER. Physical exam was unremarkable with a normal cardiac exam and clear lungs to auscultation. A 2D echo was performed revealing normal LV systolic function without regional wall motion abnormalities and an EF of 65-70%. Grade 1 diastolic dysfunction, mild mitral regurgitation and trace tricuspid valve regurgitation were also noted. Serial cardiac enzymes were pulled overnight and her troponin peaked at 1.17 and came down again, eventually thought 2/2 her palpitations and tachycardia associated with that. A stress test was performed the following morning which was negative for inducible ischemia. Cardiology was consulted and felt that the palpitations and chest discomfort stemmed from anxiety. Where there were no arryhtmias on telemetry overnight, she was considered for an outpatient event monitor in the next 1-2 weeks. Total time spent on discharge = 60 minutes This includes examination of the patient, discharge planning, medication reconciliation, and communication with other providers. [place] [address] Discharge Medical Patient Name: Chetan Rivero Unit Number: [id number] Date of : 1960 Patient Status: Discharged Inpatient (obs) Attending Doctor: Sierra Paige DO DI: Medical v4 Discharge Instructions Date of Service Jul 06, 2017. Admission Reason for Admission: Chest Pain, Elevated Troponin Discharge Discharge Diagnosis / Problem: chest pain, non-cardiac etiology Discharge Goals Goal(s): Prevent Disease Progression Activity Recommendations Activity Limitations: per Instructions/Follow-up section . Instructions / Follow-Up Instructions / Follow-Up Please return to ER if symptoms return You will need to contact [facility] to set up a follow-up visit with Dr. Georgi Sibley in 1-2 weeks. You will be getting set up with an event monitor at this appointment. You have a follow-up appointment scheduled with Dr. Rain (PCP) on 07/10 @ 10:45am for follow-up from this hospitalization. Please bring all paperwork with you to this appointment. It was a pleasure taking care of you! Call if you have any questions or problems. You can reach a Unruly hospitalist on duty at [facility] 24 hours a day by calling [phone]. Take care of yourself. DO [facility] Current Hospital Diet Patient's current hospital diet: AHA Diet (Heart Healthy) Discharge Diet Recommended Diet: Regular Diet Procedures Procedures Performed: stress echo-no inducible ischemia Pending Studies Studies pending at discharge: no Laboratory Results Hemoglobin A1c Test 07/05/17 13:00 Range/Units Estimated Average Glucose 108 mg/dl Hemoglobin A1c 5.4 4.5-5.6 % Lipid Panel Test 07/05/17 13:00 Range/Units Triglycerides Level 105 0-150 mg/dl Cholesterol Level 268 H 0-200 mg/dl HDL Cholesterol 89 mg/dl Cholesterol/HDL Ratio 3.0 LDL Cholesterol, Calculated 158 mg/dl Medical Emergencies . Who to Call and When: Medical Emergencies: If at any time you feel your situation is an emergency, please call 911 immediately. . Non-Emergent Contact Non-Emergency issues call your: Primary Care Provider . . "Provider Documentation" section prepared by Sierra Paige. . VTE Core Measure Inpt VTE Proph given/why not?: Other Anticoagulation (heparin drip) Additional Copies To Azalia Rain,DO
== END 2017-07-06 11:18 | disposition home or self-care (01) ==
LOC: C.EDB 12:41 → C.2T 14:36 → ENRESERV 15:15
PROVIDERS: ADMIT Hospitalist; ATTEND Hospitalist
DX: R07.9 Chest pain, unspecified (principal); R00.2 Palpitations; R79.89 Other specified abnormal findings of blood chemistry; F41.9 Anxiety disorder, unspecified; Z82.49 Family history of ischemic heart disease and other diseases of the circulatory system

== ENCOUNTER 2017-12-23 13:00 | Emergency (ER) | payer BC, OTHER ==
[~2017-12-23] VITALS: Ht 154.9 cm; Wt 43.0 kg
[2017-12-23 13:03] VITALS: TEMP 37; Ht 154.9 cm; Wt 43.0 kg
--- NOTE | 2017-12-23 13:34 | EMERGENCY ROOM VISIT NOTE ---
History Report prepared by Agustina: Mac Bernal Under the Supervision of: Dr. Chad Flores M.D. First contact with patient: 13:10 Chief Complaint: MENTAL HEALTH EVALUATION Stated Complaint: COLLAPSED ON FLOOR, SEVERE DEPRESSION AND ANXIETY History of Present Illness The patient is a 57 year old female who presents to the Emergency Room for a mental health evaluation. The patient states that an hour ago she felt as if her "heart was wrong". She reports she had to lay down because of the feeling. The patient is accompanied by her who states the patient was not capable of speaking at the time. He reports he had to lift her into the chair and she was unable to have a conversation. Her states the patient is currently back to normal. The patient states the left side of her body is currently numb. Her states she has been focusing on her heart for a while. He reports that in July the patient thought she was having a heart attack, which turned out to be an anxiety attack. He notes the patient has been paying attention to her chest and heart rate more than normal. He notes the patient has followed up with [facility] who has not found any significant problems. Her states the patient has been dealing with depression and anxiety for three months. He reports she has tried multiple antidepressants, including her current medication of Klonopin and Mirtazapine. He states she has been taking half of her Klonopin at night and notes she was started on Mirtazapine five days ago. Her states the patient has been having eating problems and lost 10 pounds recently. He also notes the patient has been dealing with sleep issues. The patient states she "feels like I am a burden". She admits to suicidal ideation but denies any plan. She also denies any homicidal ideations. Source of History: patient, spouse/significant other Onset: an hour ago Position: other (global) Quality: other (anxiety and depression) Timing: resolved Associated Symptoms: + numbness Note: Associated symptom: "heart felt wrong", unable to have a conversation, suicidal ideation Denies: homicidal ideation. Review of Systems See HPI for pertinent positives & negatives. A total of 10 systems reviewed and were otherwise negative. Past Medical & Surgical Medical Problems: (1) No significant active problems Old medical records were reviewed. Nurse's notes were reviewed and I agree with. Family History FH: myocardial infarction MOTHER Social History Smoking Status: Never Smoker Alcohol Use: none Drug Use: none Current/Historical Medications Scheduled Mirtazapine (Remeron), 15 MG PO HS Scheduled PRN Clonazepam (Klonopin), 0.25 MG PO HS PRN for Sleep Allergies Coded Allergies: No Known Allergies (Unverified , 12/23/17) Physical Exam Vital Signs Date Time Temp Pulse Resp B/P (MAP) Pulse Ox O2 Delivery O2 Flow Rate FiO2 12/23/17 17:11 75 18 98/63 96 12/23/17 13:03 37.0 79 16 102/65 99 Room Air Physical Exam General: Non-ill appearing slender middle aged female in no acute distress. Speaking and swallowing without difficulty. HEENT: Normal cephalic atraumatic. Pupils are equal round and reactive to light. Extraocular movements are intact. Oropharynx is pink with moist mucous membranes. No swelling of the mouth lips or tongue. Neck: Supple with a midline trachea. No meningeal signs or stiffness, no JVD or bruits. No Stridor. Chest: Clear to auscultation bilaterally. No wheezes or rhonchi. No increased work of breathing. Heart: regular rate and rhythm. Abdomen: Soft nontender, nondistended without rebound guarding or rigidity. Extremities: No cyanosis clubbing or edema. No calf tenderness or assymetry Spine/Back. Non tender to palpation. No CVA tenderness Skin: Good turgor without rashes. Neurologic exam: Cranial nerves two through 12 are intact. Motor and sensation are intact and symmetrical throughout. Sghe complains of being numb on the left side however she is intact to light touch Medical Decision & Procedures ER Provider Diagnostic Interpretation: Radiology results as stated below per my review and radiologist interpretation: HEAD WITHOUT CONTRAST (CT) CLINICAL HISTORY: 57 years-old Female with left arm/leg tingling. Acute strokelike symptoms TECHNIQUE: Multiple axial CT images of the head were obtained without contrast. A dose lowering technique was utilized adhering to the principles of ALARA. CT DOSE: 537.48 mGy.cm COMPARISON: None. FINDINGS: No acute intracranial hemorrhage, midline shift, intracranial mass, hydrocephalus, territorial ischemia or abnormal extra-axial collection. Ill-defined areas of low-attenuation within the subcortical and periventricular white matter suggest chronic microvascular ischemic changes. The calvarium is intact. The paranasal sinuses, mastoid air cells, and middle ear cavities are clear. IMPRESSION: No acute intracranial abnormality. The above report was generated using voice recognition software. It may contain grammatical, syntax or spelling errors. Electronically signed by: Glenroy Tejeda M.D. 12/23/2017 2:22 PM Dictated Date/Time: 12/23/2017 2:19 PM CHEST ONE VIEW PORTABLE HISTORY: 57 years-old Female CHEST PAIN acute atypical chest pain COMPARISON: Chest radiograph 07/05/2017 TECHNIQUE: Portable AP view of the chest FINDINGS: Cardiomediastinal and hilar silhouettes are within normal limits. No pneumothorax, pleural effusion, focal airspace consolidation or overt pulmonary edema. The bones of the chest appear grossly intact. IMPRESSION: No acute process. The above report was generated using voice recognition software. It may contain grammatical, syntax or spelling errors. Electronically signed by: Glenroy Tejeda M.D. 12/23/2017 2:01 PM Dictated Date/Time: 12/23/2017 2:00 PM Laboratory Results 12/23/17 13:48 Red Blood Count 4.17, Mean Corpuscular Volume 95.2, Mean Corpuscular Hemoglobin 32.9, Mean Corpuscular Hemoglobin Concent 34.5, Mean Platelet Volume 8.9, Neutrophils (%) (Auto) 70.9, Lymphocytes (%) (Auto) 22.2, Monocytes (%) (Auto) 5.8, Eosinophils (%) (Auto) 0.7, Basophils (%) (Auto) 0.2, Neutrophils # (Auto) 3.03, Lymphocytes # (Auto) 0.95, Monocytes # (Auto) 0.25, Eosinophils # (Auto) 0.03, Basophils # (Auto) 0.01 12/23/17 13:48 Test 12/23/17 13:48 12/23/17 13:57 12/23/17 14:55 White Blood Count 4.28 K/uL (4.8-10.8) Red Blood Count 4.17 M/uL (4.2-5.4) Hemoglobin 13.7 g/dL (12.0-16.0) Hematocrit 39.7 % (37-47) Mean Corpuscular Volume 95.2 fL (80-100) Mean Corpuscular Hemoglobin 32.9 pg (25-34) Mean Corpuscular Hemoglobin Concent 34.5 g/dl (32-36) Platelet Count 189 K/uL (130-400) Mean Platelet Volume 8.9 fL (7.4-10.4) Neutrophils (%) (Auto) 70.9 % Lymphocytes (%) (Auto) 22.2 % Monocytes (%) (Auto) 5.8 % Eosinophils (%) (Auto) 0.7 % Basophils (%) (Auto) 0.2 % Neutrophils # (Auto) 3.03 K/uL (1.4-6.5) Lymphocytes # (Auto) 0.95 K/uL (1.2-3.4) Monocytes # (Auto) 0.25 K/uL (0.11-0.59) Eosinophils # (Auto) 0.03 K/uL (0-0.5) Basophils # (Auto) 0.01 K/uL (0-0.2) RDW Standard Deviation 43.8 fL (36.4-46.3) RDW Coefficient of Variation 12.6 % (11.5-14.5) Immature Granulocyte % (Auto) 0.2 % Immature Granulocyte # (Auto) 0.01 K/uL (0.00-0.02) Anion Gap 5.0 mmol/L (3-11) Est Creatinine Clear Calc Drug Dose 69.6 ml/min Estimated GFR () 117.7 Estimated GFR (Non- 101.5 BUN/Creatinine Ratio 16.9 (10-20) Calcium Level 9.0 mg/dl (8.5-10.1) Total Bilirubin 0.9 mg/dl (0.2-1) Direct Bilirubin 0.2 mg/dl (0-0.2) Aspartate Amino Transf (AST/SGOT) 23 U/L (15-37) Alanine Aminotransferase (ALT/SGPT) 45 U/L (12-78) Alkaline Phosphatase 76 U/L (45-117) Total Protein 7.2 gm/dl (6.4-8.2) Albumin 3.9 gm/dl (3.4-5.0) Lipase 123 U/L (73-393) Thyroid Stimulating Hormone (TSH) 1.510 uIu/ml (0.300-4.500) Salicylates Level < 1.7 mg/dl (2.8-20) Acetaminophen Level < 2 ug/ml (10-30) Ethyl Alcohol mg/dL < 3.0 mg/dl (0-3) Bedside Troponin I < 0.030 ng/ml (0-0.045) Urine Color YELLOW Urine Appearance CLEAR (CLEAR) Urine pH 7.0 (4.5-7.5) Urine Specific [place] 1.012 (1.000-1.030) Urine Protein NEG (NEG) Urine Glucose (UA) NEG (NEG) Urine Ketones NEG (NEG) Urine Occult Blood NEG (NEG) Urine Nitrite NEG (NEG) Urine Bilirubin NEG (NEG) Urine Urobilinogen NEG (NEG) Urine Leukocyte Esterase TRACE (NEG) Urine WBC (Auto) 1-5 /hpf (0-5) Urine RBC (Auto) 0-4 /hpf (0-4) Urine Hyaline Casts (Auto) 0 /lpf (0-5) Urine Epithelial Cells (Auto) 5-10 /lpf (0-5) Urine Bacteria (Auto) NEG (NEG) Urine Opiates Screen NEG (NEG) Urine Methadone, Qualitative NEG (NEG) Urine Barbiturates NEG (NEG) Urine Phencyclidine (PCP) Level NEG (NEG) Ur Amphetamine/Methamphetamine NEG (NEG) MDMA (Ecstasy) Screen NEG (NEG) Urine Benzodiazepines Screen NEG (NEG) Urine Cocaine Metabolite NEG (NEG) Urine Marijuana (THC) NEG (NEG) Laboratory studies as stated above per my review. ECG Per My Interpretation Indication: chest pain Rate (beats per minute): 74 Findings: other (nonspecific- T wave abnormality, poor baseline) Comparison ECG Date: 07/06/17 Change: Nonspecific T wave abnormalities are now present ED Course 1309: Past medical records reviewed. The patient was evaluated in room A06, and a complete history and physical examination were performed. 1509: I reevaluated the patient and she is resting comfortably. She is medically cleared. 1634: I discussed the patient's case with the renal case manager. She believes the patient is able to go home. 1642: Upon reevaluation, the patient is resting comfortably. I discussed the results and treatment plan with the patient. She verbalized agreement of the treatment plan. The patient was discharged home. Medical Decision Differentials include, but are not limited to; anxiety, cardiac disease, neurological process, and electrolyte or metabolic abnormality. This patient comes in as described above. She was placed in room A6. She is here for treatment and evaluation of an episode of chest pain. She has had severe anxiety that has presented like this before and her says that she is very anxious. She apparently collapsed earlier and she is doing much better now. They have been adjusting her medications but have had a hard time finding anything she can tolerate due to side effects. IV access was established EKG and blood work was obtained she also started tell me she felt numb on her left arm and leg she has no neurologic deficits. I did do a CAT scan of her head as well as a cardiac and mental health workup. She was reassessed frequently. EKG does not suggest acute cardiac event. Troponin is negative. CAT scan of her head is negative. She has no acute electrolyte or metabolic abnormalities. She was further evaluated by Tia, our psychiatric renal case manager. The patient and her think she can go home and I think this is reasonable and Tia did as well she has an appointment to see her counselor on Sunday. was happy with the plan as was the patient she will be discharged home. She had is not suicidal or homicidal at present. She was encouraged to return if worsening symptoms, any new problems or concerns. Medication Reconcilliation Current Medication List: was personally reviewed by me Blood Pressure Screening Patient's blood pressure: Normal blood pressure Impression Primary Impression: Anxiety Additional Impression: Chest pain Scribe Attestation The scribe's documentation has been prepared under my direction and personally reviewed by me in its entirety. I confirm that the note above accurately reflects all work, treatment, procedures, and medical decision making performed by me. Departure Information Dispostion Home / Self-Care Referrals Azalia Rain DO (PCP) Forms HOME CARE DOCUMENTATION FORM, IMPORTANT VISIT INFORMATION Patient Instructions My [facility] Additional Instructions Rest Return if: Worsening of symptoms, thoughts of hurting himself or others, any new problems or concerns Follow-up with your doctor this week for recheck and keep your appointment with your psychiatrist Problem Qualifiers
--- NOTE | 2017-12-23 14:02 | DIAGNOSTIC IMAGING REPORT ---
CHEST ONE VIEW PORTABLE HISTORY: 57 years-old Female CHEST PAIN acute atypical chest pain COMPARISON: Chest radiograph 07/05/2017 TECHNIQUE: Portable AP view of the chest FINDINGS: Cardiomediastinal and hilar silhouettes are within normal limits. No pneumothorax, pleural effusion, focal airspace consolidation or overt pulmonary edema. The bones of the chest appear grossly intact. IMPRESSION: No acute process. The above report was generated using voice recognition software. It may contain grammatical, syntax or spelling errors. Electronically signed by: Glenroy Tejeda M.D. 12/23/2017 2:01 PM Dictated Date/Time: 12/23/2017 2:00 PM
[2017-12-23 14:12] LABS: BASO % 0.2 %; BASO ABS # 0.01 K/uL (0-0.2); EOS % 0.7 %; EOS ABS # 0.03 K/uL (0-0.5); HEMATOCRIT 39.7 % (37-47); HEMOGLOBIN 13.7 g/dL (12.0-16.0); IG# 0.01 K/uL (0.00-0.02); LYMPH % 22.2 %; LYMPH ABS # 0.95 K/uL (1.2-3.4); MEAN CELL VOLUME 95.2 fL (80-100); MEAN CORPUSCULAR HEMOGLOBIN 32.9 pg (25-34); MEAN CORPUSCULAR HGB CONC 34.5 g/dl (32-36); MEAN PLATELET VOLUME 8.9 fL (7.4-10.4); MONO % 5.8 %; MONO ABS # 0.25 K/uL (0.11-0.59); NEUT % 70.9 %; NEUT ABS # 3.03 K/uL (1.4-6.5); PLATELET COUNT 189 K/uL (130-400); RED CELL DISTRIBUTION WIDTH CV 12.6 % (11.5-14.5); RED CELL DISTRIBUTION WIDTH SD 43.8 fL (36.4-46.3); WHITE BLOOD COUNT 4.28 K/uL (4.8-10.8)
--- NOTE | 2017-12-23 14:23 | DIAGNOSTIC IMAGING REPORT ---
HEAD WITHOUT CONTRAST (CT) CLINICAL HISTORY: 57 years-old Female with left arm/leg tingling. Acute strokelike symptoms TECHNIQUE: Multiple axial CT images of the head were obtained without contrast. A dose lowering technique was utilized adhering to the principles of ALARA. CT DOSE: 537.48 mGy.cm COMPARISON: None. FINDINGS: No acute intracranial hemorrhage, midline shift, intracranial mass, hydrocephalus, territorial ischemia or abnormal extra-axial collection. Ill-defined areas of low-attenuation within the subcortical and periventricular white matter suggest chronic microvascular ischemic changes. The calvarium is intact. The paranasal sinuses, mastoid air cells, and middle ear cavities are clear. IMPRESSION: No acute intracranial abnormality. The above report was generated using voice recognition software. It may contain grammatical, syntax or spelling errors. Electronically signed by: Glenroy Tejeda M.D. 12/23/2017 2:22 PM Dictated Date/Time: 12/23/2017 2:19 PM
[2017-12-23 14:34] LABS: ALBUMIN 3.9 gm/dl (3.4-5.0); CREATININE 0.62 mg/dl (0.60-1.20); POTASSIUM 3.5 mmol/L (3.5-5.1)
[2017-12-23 14:45] LABS: TOTAL PROTEIN 7.2 gm/dl (6.4-8.2)
[2017-12-23] MEDS ORDERED: CLON0.5T3 PO (14:47)
[2017-12-23] MEDS ORDERED: MIRT15TA3 PO (14:47)
[2017-12-23 17:11] VITALS: BP 98/63; PULSE 75; O2SAT 96
== END 2017-12-23 17:13 | disposition home or self-care (01) ==
LOC: C.EDB 13:01 → C.EDA 17:13
DX: F41.9 Anxiety disorder, unspecified (principal); R07.9 Chest pain, unspecified; F32.9 Major depressive disorder, single episode, unspecified; Z82.49 Family history of ischemic heart disease and other diseases of the circulatory system; Z79.899 Other long term (current) drug therapy

== ENCOUNTER 2019-05-19 12:07 | Observation (INO) ==
[2019-05-19] MEDS ORDERED: SODIUM CHLORIDE 0.9% 1000ML 500 ML IV ONE (14:01)
[2019-05-19 14:15] LABS: Basophils # (auto) 0.01 K/uL (0-0.2); Basophils % (auto) 0.2 %; Eosinophils # (auto) 0.04 K/uL (0-0.5); Eosinophils % (auto) 0.9 %; Hematocrit (blood only) 37.7 % (37-47); Hemoglobin 12.8 g/dL (12.0-16.0); Immature Granulocytes # (auto) 0.01 K/uL (0.00-0.02); Immature Granulocytes % (auto) 0.2 %; Lymphocytes # (auto) 1.02 K/uL (1.2-3.4); Lymphocytes % (auto) 23.4 %; Mean Corpuscular Hemoglobin 33.1 pg (25-34); Mean Corpuscular Volume 97.4 fL (80-100); Mean Platelet Volume 9.4 fL (7.4-10.4); Monocytes # (auto) 0.25 K/uL (0.11-0.59); Monocytes % (auto) 5.7 %; Neutrophils # (auto) 3.03 K/uL (1.4-6.5); Neutrophils % (auto) 69.6 %; Platelet Count 148 K/uL (130-400); RDW Coefficient of Variation 12.7 % (11.5-14.5); RDW Standard Deviation 44.4 fL (36.4-46.3); Red Blood Count 3.87 M/uL (4.2-5.4); White Blood Count 4.36 K/uL (4.8-10.8)
[2019-05-19 14:25] LABS: Partial Thromboplastin Ratio 0.8; Partial Thromboplastin Time 22.8 Seconds (21.0-31.0); Prothrombin Time 10.3 Seconds (9.0-12.0)
[2019-05-19 14:35] LABS: Alanine Aminotransferase 29 U/L (12-78); Albumin Level 3.8 gm/dl (3.4-5.0); Aspartate Aminotransferase 17 U/L (15-37); Blood Urea Nitrogen 14 mg/dl (7-18); Calcium 9.3 mg/dl (8.5-10.1); Carbon Dioxide 28 mmol/L (21-32); Chloride 107 mmol/L (98-107); Creatinine Clr Calc Pharmacy 63.4 ml/min; Est GFR (African American) 108.5; Est GFR (Non-African American) 93.6; Glucose 91 mg/dl (70-99); Magnesium 2.7 mg/dl (1.8-2.4); Potassium 3.7 mmol/L (3.5-5.1); Sodium 142 mmol/L (136-145)
[2019-05-19 14:40] LABS: Albumin Globulin Ratio 1.2 (0.9-2); Alkaline Phosphatase 69 U/L (45-117); Bilirubin,Total 0.5 mg/dl (0.2-1); Globulin 3.2 gm/dl (2.5-4.0); Troponin I < 0.015 ng/ml (0-0.045)
--- NOTE | 2019-05-19 14:57 | CT Scan Report ---
HEAD CT NONCONTRAST CT DOSE: 537.48 mGy.cm HISTORY: Left-sided face and arm numbness. Stroke evaluation TECHNIQUE: Multiaxial CT images of the head were performed without the use of intravenous contrast. A utomated exposure control was utilized for this study. A dose lowering technique was utilized adheri ng to the principles of ALARA. Comparison: Head CT 12/23/2017. Findings: The paranasal sinuses and mastoid air cells are clear. The calvarium and skull base are int act. There is no mass, hematoma, midline shift, acute infarct. White matter hypodensity is nonspecifi c but suggestive of mild microvascular ischemic change. This remains unchanged. The ventricles and juárez lci are within normal limits for age. Impression: No significant change compared to the prior study. No acute intracranial abnormality. Electronically signed by: Darien Coelho M.D. 05/19/2019 2:56 PM
[2019-05-19] MEDS ORDERED: ASPIRIN CHEW 324 MG PO STA (16:19)
[2019-05-19] MEDS ORDERED: ALBUTEROL HFA 8 GM INHALER INH ONE (16:45)
--- NOTE | 2019-05-19 16:53 | Emergency Department Note ---
Entered by Marilee Baldwin acting as a scribe for History of Present Illness General Chief complaint: Cardiac Assessment Stated complaint: NUMBNESS LEFT SIDE Time Seen by Provider: 05/19/19 13:52 Source: patient History of Present Illness Provider complaint: Stroke Symptoms Onset (ago): day(s) 1 Location: face Radiation: extremity (Left arm) Maximum Pain Intensity: 5 Relieved By: + none Associated symptoms: + cough, + nausea/vomiting (Positive nausea. Negative vomiting. ) and + other (Left lip and arm numbness ); no fever/chills The patient is a 58 year old female who presents to the Emergency Room with complaints of left side stroke like symptoms that began yesterday. The patient states the symptoms radiate from her left lip to left arm and are not relieved by anything specific. The patient reports experiencing left lip and arm numbness as well as a cough. Additionally, the patient reports experiencing nausea but denies any vomiting or fever/chills. The patient noted that she was doing ECT treatment 3 times a week for depression but was bumped down to 2 times a week because it worsened her anxiety. Additionally, the patient mentioned that her last ECT treatment was Sunday and she was supposed to have one this morning. Home Medications Home Medications Medication Instructions Recorded Confirmed Type albuterol sulfate 1 puff INHALATION Q6H PRN 05/19/19 05/19/19 History clonazepam 0.5 mg PO DAILY 05/19/19 05/19/19 History cyclosporine [Restasis] 1 drp OPHTHALMIC (EYE) BID 05/19/19 05/19/19 History multivitamin 1 tab PO QAM 05/19/19 05/19/19 History omega 8-cja-eoz-fish oil [Fish Oil] 1 cap PO QAM 05/19/19 05/19/19 History Allergies Allergy/AdvReac Type Severity Reaction Status Date / Time No Known Allergies Allergy Unverified 05/19/19 12:38 Past Med/Surg History Medical History Anxiety Depression Surgical History History of esophagogastroduodenoscopy (EGD) Family History Father Lung cancer Mother No problems noted. Social History Preferred Language: Mandarin Uzbek Communication Ability: Effective Communication Ability Comment: But does speak Macedonian Jordan Man Required: No Beliefs That Will Affect Care: None marital status: Current Living Situation: Spouse Other Information That Helps Us Care for You: No Feels Safe at Home: Yes Safety Concerns: Feels Safe At This Time Smoking Status: Never smoker Do You Dip or Chew Tobacco: No ; Second Hand Exposure: No ; Tobacco Cessation Education Requested by Patient: No Hx Alcohol Use: No Hx Substance Use: No Childhood Exposure to Second-Hand Smoke: No Review of Systems See HPI for pertinent positives & negatives. and A total of 10 systems reviewed and were otherwise negative Physical Exam Vital Signs Vital Signs - 24 hr 05/19/19 12:12 05/19/19 12:30 05/19/19 12:34 Temperature 36.7 C Temperature Source Oral Sepsis Recent Fever Within 48 Hours No Sepsis New/Unexplained Change in Mental Status No Sepsis Action Taken by Nursing No Action Required Pulse Rate 76 70 Pulse Rate from SpO2 Sensor 70 Respiratory Rate 20 17 Blood Pressure 114/82 115/67 Blood Pressure Mean 92 83 Blood Pressure Position Sitting Pulse Oximetry 98 100 100 Oxygen Delivery Method Room Air 05/19/19 12:37 05/19/19 13:00 05/19/19 13:30 Temperature Temperature Source Sepsis Recent Fever Within 48 Hours Sepsis New/Unexplained Change in Mental Status Sepsis Action Taken by Nursing Pulse Rate 77 70 65 Pulse Rate from SpO2 Sensor 77 70 65 Respiratory Rate 20 15 18 Blood Pressure 101/64 107/69 Blood Pressure Mean 76 81 Blood Pressure Position Pulse Oximetry 100 100 99 Oxygen Delivery Method 05/19/19 14:00 05/19/19 14:01 05/19/19 14:30 Temperature Temperature Source Sepsis Recent Fever Within 48 Hours Sepsis New/Unexplained Change in Mental Status Sepsis Action Taken by Nursing Pulse Rate 70 69 65 Pulse Rate from SpO2 Sensor Respiratory Rate 20 18 15 Blood Pressure 130/85 Blood Pressure Mean 100 Blood Pressure Position Pulse Oximetry Oxygen Delivery Method 05/19/19 15:00 05/19/19 15:30 05/19/19 16:00 Temperature Temperature Source Sepsis Recent Fever Within 48 Hours Sepsis New/Unexplained Change in Mental Status Sepsis Action Taken by Nursing Pulse Rate 63 64 69 Pulse Rate from SpO2 Sensor 62 64 68 Respiratory Rate 13 16 15 Blood Pressure 115/73 111/67 131/68 Blood Pressure Mean 87 81 89 Blood Pressure Position Pulse Oximetry 99 98 99 Oxygen Delivery Method 05/19/19 16:30 05/19/19 17:02 05/19/19 17:30 Temperature Temperature Source Sepsis Recent Fever Within 48 Hours Sepsis New/Unexplained Change in Mental Status Sepsis Action Taken by Nursing Pulse Rate 69 75 69 Pulse Rate from SpO2 Sensor 71 69 Respiratory Rate 16 21 18 Blood Pressure 126/76 105/64 Blood Pressure Mean 92 77 Blood Pressure Position Pulse Oximetry 99 96 Oxygen Delivery Method 05/19/19 18:00 Temperature Temperature Source Sepsis Recent Fever Within 48 Hours Sepsis New/Unexplained Change in Mental Status Sepsis Action Taken by Nursing Pulse Rate 65 Pulse Rate from SpO2 Sensor 66 Respiratory Rate 15 Blood Pressure 84/56 L Blood Pressure Mean 65 Blood Pressure Position Pulse Oximetry 97 Oxygen Delivery Method GENERAL: Patient is in no acute distress. HEENT: No acute trauma, normocephalic atraumatic, mucous membranes moist, no nasal congestion, no scleral icterus. NECK: No stridor, no adenopathy, no meningismus, trachea is midline. LUNGS: Clear to auscultation bilaterally, no wheeze, no rhonchi, breath sounds equal. HEART: Without murmurs gallops or rubs, regular rate and rhythm. ABDOMEN: Soft, nontender, bowel sounds positive, no hernias, no peritonitis. EXTREMITIES: No cyanosis or edema, full range of motion of all the joints without pain or difficulty, no signs for acute trauma. NEUROLOGIC: Oriented x 3, no acute motor or sensory deficits, no focal weakness. No facial droop or speech slur. No pronator drift or cerebellar dysfunction. SKIN: No rash, no jaundice, no diaphoresis. Course 1354: Past medical records reviewed. The patient was evaluated in room C05. A complete history and physical exam was performed. 1541: I spoke with Dr. Elizabeth about the patient's case. She believes that the patient should stay in the hospital but if the patient chooses to go home we should order a brain MRI and a carotid ultrasound before she leaves. 1552: I reevaluated and discussed the test results with the patient. I discussed my phone call with Dr. Elizabeth with the patient and she would like to talk about her options with her . 1614: I spoke with the patient and she has decided to stay in the hospital. 1619: I spoke with Marissa Weston about the patient's case and Dr. Rodas- Hospitalist will accept the patient for further evaluation. Administered Medications Discontinued Medications Albuterol (Ventolin Hfa) 2 puffs INH NOW ONE Stop: 05/19/19 16:46 Last Admin: 05/19/19 18:05 Dose: 2 puffs Documented by: [id number] Aspirin (Aspirin) 324 mg PO NOW STA Stop: 05/19/19 16:20 Last Admin: 05/19/19 17:02 Dose: 324 mg Documented by: [id number] Sodium Chloride (Nss 1000ml) 500 mls @ 999 mls/hr IV .Q31M ONE Stop: 05/19/19 14:31 Last Infusion: 05/19/19 14:52 Dose: 0 mls/hr Documented by: [id number] Admin: 05/19/19 14:18 Dose: 999 mls/hr Documented by: [id number] Medical Decision Making Differential Diagnosis Differentials Include: Stroke, ECT complication, Intracranial bleeding, Anxiety, Infection, Electrolyte imbalance, and Thyrhoid disorder. Medical Records Attestation: I reviewed the patient's medical records. Home Medications Current Medication List: was personally reviewed by me Laboratory Data Attestation: I reviewed the patient's lab results. Result diagrams: 05/19/19 13:47 05/19/19 13:47 Lab Results 05/19/19 05/19/19 05/19/19 Range/Units 13:47 13:47 13:47 WBC 4.36 L (4.8-10.8) K/uL RBC 3.87 L (4.2-5.4) M/uL Hgb 12.8 (12.0-16.0) g/dL Hct 37.7 (37-47) % MCV 97.4 (80-100) fL MCH 33.1 (25-34) pg MCHC 34.0 (32-36) g/dL RDW Std Deviation 44.4 (36.4-46.3) fL RDW Coeff of Olivier 12.7 (11.5-14.5) % Plt Count 148 (130-400) K/uL MPV 9.4 (7.4-10.4) fL Immature Gran % (Auto) 0.2 % Neut % (Auto) 69.6 % Lymph % (Auto) 23.4 % King % (Auto) 5.7 % Eos % (Auto) 0.9 % Baso % (Auto) 0.2 % Immature Gran # (Auto) 0.01 (0.00-0.02) K/uL Neut # (Auto) 3.03 (1.4-6.5) K/uL Lymph # (Auto) 1.02 L (1.2-3.4) K/uL King # (Auto) 0.25 (0.11-0.59) K/uL Eos # (Auto) 0.04 (0-0.5) K/uL Baso # (Auto) 0.01 (0-0.2) K/uL PT 10.3 (9.0-12.0) Seconds INR 1.0 (0.9-1.1) APTT 22.8 (21.0-31.0) Seconds PTT Ratio 0.8 Sodium 142 (136-145) mmol/L Potassium 3.7 (3.5-5.1) mmol/L Chloride 107 (98-107) mmol/L Carbon Dioxide 28 (21-32) mmol/L Anion Gap 7.0 (3-11) BUN 14 (7-18) mg/dl Creatinine 0.72 (0.6-1.2) mg/dl Est Cr Clr Drug Dosing 63.4 ml/min Est GFR ( Amer) 108.5 Est GFR (Non-Af Amer) 93.6 BUN/Creatinine Ratio 19.0 (10-20) Glucose 91 (70-99) mg/dl Calcium 9.3 (8.5-10.1) mg/dl Ionized Calcium (1.12-1.32) mmol/L Magnesium 2.7 H (1.8-2.4) mg/dl Total Bilirubin 0.5 (0.2-1) mg/dl AST 17 (15-37) U/L ALT 29 (12-78) U/L Alkaline Phosphatase 69 (45-117) U/L Troponin I < 0.015 (0-0.045) ng/ml Total Protein 7.0 (6.4-8.2) gm/dl Albumin 3.8 (3.4-5.0) gm/dl Globulin 3.2 (2.5-4.0) gm/dl Albumin/Globulin Ratio 1.2 (0.9-2) Vitamin B12 (211-911) pg/ml TSH (0.300-4.500) uIu/ml Influenza Type A Ag (Neg) Influenza Type B Ag (Neg) 09/30/19 09/30/19 09/30/19 Range/Units 13:47 16:54 17:00 WBC (4.8-10.8) K/uL RBC (4.2-5.4) M/uL Hgb (12.0-16.0) g/dL Hct (37-47) % MCV (80-100) fL MCH (25-34) pg MCHC (32-36) g/dL RDW Std Deviation (36.4-46.3) fL RDW Coeff of Olivier (11.5-14.5) % Plt Count (130-400) K/uL MPV (7.4-10.4) fL Immature Gran % (Auto) % Neut % (Auto) % Lymph % (Auto) % King % (Auto) % Eos % (Auto) % Baso % (Auto) % Immature Gran # (Auto) (0.00-0.02) K/uL Neut # (Auto) (1.4-6.5) K/uL Lymph # (Auto) (1.2-3.4) K/uL King # (Auto) (0.11-0.59) K/uL Eos # (Auto) (0-0.5) K/uL Baso # (Auto) (0-0.2) K/uL PT (9.0-12.0) Seconds INR (0.9-1.1) APTT (21.0-31.0) Seconds PTT Ratio Sodium (136-145) mmol/L Potassium (3.5-5.1) mmol/L Chloride (98-107) mmol/L Carbon Dioxide (21-32) mmol/L Anion Gap (3-11) BUN (7-18) mg/dl Creatinine (0.6-1.2) mg/dl Est Cr Clr Drug Dosing ml/min Est GFR ( Amer) Est GFR (Non-Af Amer) BUN/Creatinine Ratio (10-20) Glucose (70-99) mg/dl Calcium (8.5-10.1) mg/dl Ionized Calcium (1.12-1.32) mmol/L Magnesium (1.8-2.4) mg/dl Total Bilirubin (0.2-1) mg/dl AST (15-37) U/L ALT (12-78) U/L Alkaline Phosphatase (45-117) U/L Troponin I < 0.015 (0-0.045) ng/ml Total Protein (6.4-8.2) gm/dl Albumin (3.4-5.0) gm/dl Globulin (2.5-4.0) gm/dl Albumin/Globulin Ratio (0.9-2) Vitamin B12 (211-911) pg/ml TSH 0.988 (0.300-4.500) uIu/ml Influenza Type A Ag Neg for Influ A (Neg) Influenza Type B Ag Neg for Influ B (Neg) 05/19/19 05/19/19 Range/Units 17:00 17:00 WBC (4.8-10.8) K/uL RBC (4.2-5.4) M/uL Hgb (12.0-16.0) g/dL Hct (37-47) % MCV (80-100) fL MCH (25-34) pg MCHC (32-36) g/dL RDW Std Deviation (36.4-46.3) fL RDW Coeff of Olivier (11.5-14.5) % Plt Count (130-400) K/uL MPV (7.4-10.4) fL Immature Gran % (Auto) % Neut % (Auto) % Lymph % (Auto) % King % (Auto) % Eos % (Auto) % Baso % (Auto) % Immature Gran # (Auto) (0.00-0.02) K/uL Neut # (Auto) (1.4-6.5) K/uL Lymph # (Auto) (1.2-3.4) K/uL King # (Auto) (0.11-0.59) K/uL Eos # (Auto) (0-0.5) K/uL Baso # (Auto) (0-0.2) K/uL PT (9.0-12.0) Seconds INR (0.9-1.1) APTT (21.0-31.0) Seconds PTT Ratio Sodium (136-145) mmol/L Potassium (3.5-5.1) mmol/L Chloride (98-107) mmol/L Carbon Dioxide (21-32) mmol/L Anion Gap (3-11) BUN (7-18) mg/dl Creatinine (0.6-1.2) mg/dl Est Cr Clr Drug Dosing ml/min Est GFR ( Amer) Est GFR (Non-Af Amer) BUN/Creatinine Ratio (10-20) Glucose (70-99) mg/dl Calcium (8.5-10.1) mg/dl Ionized Calcium 1.14 (1.12-1.32) mmol/L Magnesium (1.8-2.4) mg/dl Total Bilirubin (0.2-1) mg/dl AST (15-37) U/L ALT (12-78) U/L Alkaline Phosphatase (45-117) U/L Troponin I (0-0.045) ng/ml Total Protein (6.4-8.2) gm/dl Albumin (3.4-5.0) gm/dl Globulin (2.5-4.0) gm/dl Albumin/Globulin Ratio (0.9-2) Vitamin B12 > 2000 H (211-911) pg/ml TSH (0.300-4.500) uIu/ml Influenza Type A Ag (Neg) Influenza Type B Ag (Neg) Imaging Data Radiologist's Impression: Radiology results as stated below per my review and the radiologist's interpretation: HEAD CT NONCONTRAST CT DOSE: 537.48 mGy.cm HISTORY: Left-sided face and arm numbness. Stroke evaluation TECHNIQUE: Multiaxial CT images of the head were performed without the use of intravenous contrast. Automated exposure control was utilized for this study. A dose lowering technique was utilized adhering to the principles of ALARA. Comparison: Head CT 12/23/2017. Findings: The paranasal sinuses and mastoid air cells are clear. The calvarium and skull base are intact. There is no mass, hematoma, midline shift, acute infarct. White matter hypodensity is nonspecific but suggestive of mild microvascular ischemic change. This remains unchanged. The ventricles and sulci are within normal limits for age. Impression: No significant change compared to the prior study. No acute intracranial abnormality. Electronically signed by: Darien Coelho M.D. 05/19/2019 2:56 PM ECG Data Attestation: I personally reviewed and interpreted this ECG as follows: Indication: other (Stroke symptoms ) Rate (beats per minute): 66 Rhythm: normal sinus Findings: + other (QTC 394); no ST elevation and no acute ischemic change Blood Pressure Blood Pressure Findings: Normal blood pressure Blood Pressure Disposition: further management by hospitalist MDM Narrative The patient does have a slightly low white count at 4.36. There is no anemia. No coagulopathy. No significant electrolyte abnormality or kidney failure. No liver enzyme elevation. EKG shows a sinus rhythm, no acute ischemia. Cardiac enzyme testing x1 is not consistent with acute cardiac injury. Patient appeared to be in a euthyroid state. Brain CT shows no acute bleed or mass-effect. On exam, there are no focal neurologic deficits. Patient presents with left face and left arm/shoulder numbness. This has been ongoing since yesterday. She is clearly not a candidate for TPA given the timeframe of her symptoms. She is out of the TPA window. The patient was given oral aspirin, she was given IV saline, 500 cc. I did speak with neurology. Hospitalization and further stroke work-up was recommended. I talked to the patient and her . Patient was initially reluctant to stay in the hospital but then did decide to stay for further care and testing. At this point, the cause for the numbness is unclear but certainly, a small stroke could be responsible for her symptoms. Impression & Plan Stroke-like symptom, Left sided numbness Discharge Plan Visit Data Chief Complaint: Cardiac Assessment Stated Complaint: NUMBNESS LEFT SIDE ED Provider: Mandeep Abdi Discharge Problem: Stroke-like symptom, Left sided numbness Forms Stand Alone Forms: My [facility] Prescriptions Prescriptions: No Action multivitamin Tablet 1 tab PO QAM RF: 0 clonazepam 0.5 mg tablet 0.5 mg PO DAILY RF: 0 Restasis 0.05 % dropperette 1 drp ophthalmic (eye) BID RF: 0 omega 1-spl-eid-fish oil [Fish Oil] 1,000 mg (120 mg-180 mg) Capsule 1 cap PO QAM RF: 0 albuterol sulfate 90 mcg/actuation Hfa Aerosol Inhaler 1 puff INHALATION Q6H PRN (Reason: Cough) RF: 0 Referrals Referrals: Azalia Rain DO [Primary Care Provider] - The scribe's documentation has been prepared under my direction and personally reviewed by me in its entirety. I confirm that the note above accurately reflects all work, treatment, procedures, and medical decision making performed by me.
--- NOTE | 2019-05-19 17:02 | History & Physical Report ---
Date of Service May 19, 2019 Assessment & Plan (1) Stroke-like symptom: (2) Left sided numbness: This is a 58-year-old [place]ian female who has a significant past medical history of recurrent MDD and anxiety who presents to [facility] ED secondary to left arm numbness/tingling and left lip numbness since last evening. In ED patient's lab work relatively unremarkable including CBC, CMP, TSH, EKG. Magnesium slightly elevated at 2.7. Head CT negative for any acute abnormality. Mild chronic microvascular ischemic change noted and unchanged. In ED she received full-strength aspirin as well as IVF. admit to telemetry obtain ionized Ca, Troponin, vit b12, flu swab MRI w/o contrast r/o CVA consult neurology Dr. Elizabeth Carotid U/S Echocardiogram ordered neuro check per protocol A1C, Lipid panel in a.m. start ASA 81mg daily (3) Depression: receiving ECT treatment, last 05/14/[address] Cadena in [place], [place] (4) Cough: likely viral alb neb tx prn tessalon perle prn (5) DVT prophylaxis: SCD/TEDS for now monitor daily for need for chemical prophylaxis Disposition: admit to telemetry Follow up: PCP Dr. Rain upon discharge along with appropriate psychiatric follow up Pt seen and examined in collaboration with Dr. Rodas, please see addendum Starting 05/20/19 pt will be under the care of Dr. Ramirez History of Present Illness Chief Complaint: L arm/lip tingling that started last evening. Primary Care P guadalupe: Azalia Rain, DO This is a 58-year-old [place] female who has a significant past medical history of recurrent MDD and anxiety who presents to [facility] ED secondary to left arm numbness/tingling and left lip numbness since last evening. is at bedside. Patient elicits starting last evening she developed left arm numbness and tingling which continued until first thing this morning. When she woke up she also noticed she had left-sided upper and lower lip numbness. Due to symptoms was concerned which prompted them to seek ED for evaluation. Upon my evaluation patient's left arm numbness and tingling has since resolved, but her left lip numbness is still present. She denies having previous symptoms in the past. Due to her significant depression and anxiety she has been receiving ECT treatments by a psychiatrist in [place]. She has had 3 courses of ECT, last being on 05/14. feels she has been more, "befuddled," since the treatments and her mentation is less clear, but not overly confused. Since starting ECT treatments he feels she has declined, and he is entertaining not returning to psychiatrist in [place]. Feels her anxiety has heightened. With associated symptoms she and her deny any slurred speech or extremity weakness, facial droop, difficulty ambulating, or prior history of CVA. She does complain of cough for the past 2 to 3 weeks. Elicits she has albuterol inhaler at home which she uses. Recently had a URI in which symptoms resolved, but cough lingers. She denies any fever, chills, sweats, lightheadedness, dizziness, syncope, chest pain, palpitations, shortness of breath, JUNIOR, hemoptysis, nausea, vomiting, diarrhea, abdominal pain, dysuria, in creased urgency or frequency with urination, melena, hematochezia. She does occasionally have constipation. Feels after her ECT treatment she gets nauseated. Denies prior history of HTN, HLD or family history of CVA. Denies history of tobacco abuse, alcohol or recreational drug use. In ED patient's lab work relatively unremarkable including CBC, CMP, TSH, EKG. Magnesium slightly elevated at 2.7. Head CT negative for any acute abnormality. Mild chronic microvascular ischemic change noted and unchanged. In ED she received full-strength aspirin as well as IVF. Allergies Allergy/AdvReac Type Severity Reaction Status Date / Time No Known Allergies Allergy Unverified 05/19/19 12:38 Home Medications Home Medications Medication Instructions Recorded Confirmed Type albuterol sulfate 1 puff INHALATION Q6H PRN 05/19/19 05/19/19 History clonazepam 0.5 mg PO DAILY 05/19/19 05/19/19 History cyclosporine [Restasis] 1 drp OPHTHALMIC (EYE) BID 05/19/19 05/19/19 History multivitamin 1 tab PO QAM 05/19/19 05/19/19 History omega 0-ppw-trm-fish oil [Fish Oil] 1 cap PO QAM 05/19/19 05/19/19 History Past Med/Surg History Medical History Anxiety Depression Surgical History History of esophagogastroduodenoscopy (EGD) Family History Father Lung cancer Mother No problems noted. Social History Preferred Language: Mandarin [place]ian Communication Ability: Effective Communication Ability Comment: But does speak Greenlandic marital status: Current Living Situation: Spouse Smoking Status: Never smoker Hx Alcohol Use: No Hx Substance Use: No Childhood Exposure to Second-Hand Smoke: No Review of Systems Review of Systems: All systems reviewed & are unremarkable except as noted in HPI & below Physical Exam Physical Exam: Constitutional: WD/WN, petite, female, vitals as above, NAD, sitting up in bed, pleasant, conversing easily Head: Normocephalic, Atraumatic Eyes: PERRL, conjunctivae normal, anicteric sclerae ENMT: external ear and nose normal, oropharynx normal Neck: trachea midline, no thyromegaly normal visual inspection Respiratory: normal respiratory effort, lungs clear to auscultation, no wheeze, rales, rhonchi. Normal insp/exp effort, no accessory muscle use Cardiovascular: RRR, no murmur, no edema Vessels: no JVD or carotid bruit Chest: normal inspection of chest Abdomen: normal bowel sounds, soft, nontender, no hepatosplenomegaly Musculoskeletal: no cyanosis or clubbing, extremities motor strength 5/5 Skin: no rashes, warm and dry normal turgor Neurologic: PERRL, EOMI, accommodation nl, no face palsy, no dysarthria CN's II-XI intact bilaterally and moves all extremities Psychiatric: A+Ox3, euthymic affect Lymphatic: no cervical or axillary lymphadenopathy : deferred Results & Data Vital Signs (Past 12 Hours) Vital Signs Temp Pulse Resp BP Pulse Ox 05/19/19 16:00 69 15 131/68 99 05/19/19 15:30 64 16 111/67 98 05/19/19 15:00 63 13 115/73 99 05/19/19 14:30 65 15 05/19/19 14:01 69 18 130/85 05/19/19 14:00 70 20 05/19/19 13:30 65 18 107/69 99 05/19/19 13:00 70 15 101/64 100 05/19/19 12:37 77 20 100 05/19/19 12:34 100 05/19/19 12:30 70 17 115/67 100 05/19/19 12:12 36.7 C 76 20 114/82 98 Laboratory Results Short CBC 05/19/19 Range/Units 13:47 WBC 4.36 L (4.8-10.8) K/uL Hgb 12.8 (12.0-16.0) g/dL Hct 37.7 (37-47) % Plt Count 148 (130-400) K/uL BMP 05/19/19 13:47 Sodium 142 Potassium 3.7 Chloride 107 Carbon Dioxide 28 BUN 14 Creatinine 0.72 Glucose 91 Calcium 9.3 Cardiac Enzymes 05/19/19 Range/Units 13:47 Troponin I < 0.015 (0-0.045) ng/ml Liver Function 05/19/19 Range/Units 13:47 Total Bilirubin 0.5 (0.2-1) mg/dl AST 17 (15-37) U/L ALT 29 (12-78) U/L Alkaline Phosphatase 69 (45-117) U/L Albumin 3.8 (3.4-5.0) gm/dl Diagnostic Findings Head CT: Impression: No significant change compared to the prior study. No acute intracranial abnormality. Medications Administered Discontinued Medications Aspirin (Aspirin) 324 mg PO NOW STA Stop: 05/19/19 16:20 Last Admin: 05/19/19 17:02 Dose: 324 mg Documented by: [id number] Sodium Chloride (Nss 1000ml) 500 mls @ 999 mls/hr IV .Q31M ONE Stop: 05/19/19 14:31 Last Infusion: 05/19/19 14:52 Dose: 0 mls/hr Documented by: [id number] Admin: 05/19/19 14:18 Dose: 999 mls/hr Documented by: [id number] ECG Rate (beats per minute): 66 Rhythm: normal sinus Code Status & VTE Plan Code Status Full code Beartiz with patient VTE Prophylaxis Plan VTE Prophylaxis will be ordered: Yes Supervising Physician Co-Signing Physician Notes I have seen and assessed the patient with physician legal document assistant and would like to comment that Neurological symptoms: Left facial tingling, Left upper extremity numbness (Left sided numbness and paresthesia, lip numbness and paresthesia) rule out stroke -Patient had symptoms started yesterday evening (Sunday evening on 05/18/19)which she described as left facial tingling and tingling down the left upper extremities -the patient describes left upper extremities had self-resolved but continues to feel facial Paresthesia and currently more localized to her lips -the patient's lack of motor deficits and changing areas of involvement makes stroke unlikely -however patient will benefit from brain MRI to clarify if any central nervous system involvement -patient's history of Electroconvulsive therapy for depression also complicates a diagnosis of the paresthesia symptoms -TSH normal, serum magnesium normal, checking B12 levels and ionized calcium -neurology consult History of recurrent major depression -patient's history of Electroconvulsive therapy for depression also complicates a diagnosis of the paresthesia symptoms -last ECT therapy session on 05/14/19 Cough -flu swab, albuterol agree with other assessment and plan as documented by physician legal document assistant Physical Exam General: no acute distress Neuro/Face: no facial droop, no dysarthria Heart:regular and rhythm Lungs: clear to auscultation, Abdomen: soft, nontender, positive bowel sounds Extremities: no edema, no focal motor deficits My colleague Dr. Ramirez will be following the patient starting on 05/20/19
[2019-05-19] MEDS ORDERED: ALBUTEROL 0.083% NEBU SOLN 3 ML VIAL NEB PRN (19:54)
[2019-05-19] MEDS ORDERED: POLYETHYLENE (MIRALAX) 17 GM PACK PO PRN (19:54)
[2019-05-19] MEDS ORDERED: ACETAMINOPHEN 325 MG TAB PO PRN (19:54)
[2019-05-19] MEDS ORDERED: MAGNESIUM HYDROXIDE SUSP 30 ML UDC PO PRN (19:54)
[2019-05-19] MEDS ORDERED: BENZONATATE 100 MG CAPSULE PO PRN (19:54)
[2019-05-19] MEDS ORDERED: ALUMINUM/MAGNESIUM SUSP 30 ML UDC PO PRN (19:54)
[2019-05-19] MEDS ORDERED: ONDANSETRON INJ 2 MG/ML 2 ML VIAL IV PRN (19:54)
[2019-05-19] MEDS ORDERED: PHARMACIST DISCHARGE MED REC CONSULT PRN (19:54)
--- NOTE | 2019-05-19 19:58 | Magnetic Resonance Report ---
MR brain wo con CLINICAL HISTORY: 58 years-old Female presenting with left arm numbness, lip numbness, currently rebecca antony for depression. TECHNIQUE: Multisequence, multiplanar MR imaging of the brain was performed without the use of intrav enous contrast. IV contrast: None. COMPARISON: Noncontrast CT performed earlier the same day. FINDINGS: Localizer images: Unremarkable. Bone marrow signal intensity within the calvarium within normal limits. Normal midline sagittal structures. Ventricles and sulci normal in size. No mass effect or midline sh ift. No restricted diffusion or hemorrhage. Periventricular and subcortical white matter T2/FLAIR hyp erintensity, nonspecific. No extra-axial fluid collection. T2 skull base flow voids preserved. IMPRESSION: 1. Periventricular and subcortical white matter T2/FLAIR hyperintensity, nonspecific. This would be advanced for chronic small vessel ischemic change given the patient's age. Differential consideration s include demyelinating disease among other possibilities. No acute intracranial abnormality. Electronically signed by: Richard Gamble M.D. 05/19/2019 7:57 PM
[2019-05-19] MEDS ORDERED: INFLUENZA ADMINISTRATION CHARGE ONE (20:45)
[2019-05-19] MEDS ORDERED: INFLUENZA VIRUS QUAD VACCINE 0.5 ML SYR IM ONE (20:45)
[2019-05-20 06:24] LABS: Basophils # (auto) 0.02 K/uL (0-0.2); Basophils % (auto) 0.7 %; Eosinophils # (auto) 0.02 K/uL (0-0.5); Eosinophils % (auto) 0.7 %; Hematocrit (blood only) 36.1 % (37-47); Hemoglobin 11.9 g/dL (12.0-16.0); Lymphocytes # (auto) 1.05 K/uL (1.2-3.4); Lymphocytes % (auto) 36.1 %; Mean Corpuscular Hemoglobin 31.8 pg (25-34); Mean Corpuscular Volume 96.5 fL (80-100); Mean Platelet Volume 9.3 fL (7.4-10.4); Monocytes # (auto) 0.18 K/uL (0.11-0.59); Monocytes % (auto) 6.2 %; Neutrophils # (auto) 1.64 K/uL (1.4-6.5); Neutrophils % (auto) 56.3 %; Platelet Count 165 K/uL (130-400); RDW Coefficient of Variation 12.6 % (11.5-14.5); RDW Standard Deviation 44.7 fL (36.4-46.3); Red Blood Count 3.74 M/uL (4.2-5.4); White Blood Count 2.91 K/uL (4.8-10.8)
[2019-05-20 06:45] LABS: Estimated Average Glucose 108 mg/dl; Hemoglobin A1C 5.4 % (4.5-5.6)
[2019-05-20 06:57] LABS: BUN Creatinine Ratio 16.3 (10-20); Calcium 8.7 mg/dl (8.5-10.1); Creatinine Clr Calc Pharmacy 63.4 ml/min; Est GFR (African American) 108.5; Est GFR (Non-African American) 93.6; Potassium 3.9 mmol/L (3.5-5.1)
[2019-05-20] MEDS ORDERED: MULTIVITAMIN TAB PO SCH (09:00)
[2019-05-20] MEDS ORDERED: ASPIRIN 81 MG ECTAB PO SCH (09:00)
[2019-05-20] MEDS ORDERED: OMEGA-3 (PURIFIED FISH OIL) 1 GM CAP PO SCH (09:00)
[2019-05-20] MEDS: clonazePAM 0.5 MG TAB PO SCH ×2 (09:03→09:54)
--- NOTE | 2019-05-20 10:18 | Ultrasound Report ---
BILATERAL CAROTID DOPPLER STUDY HISTORY: Left arm numbness. Stroke. COMPARISON: None. TECHNIQUE: Real-time, grayscale, and color Doppler sonography of the carotid arteries was performed. Imaging reviewed in the transverse and longitudinal planes. All measurements were calculated based on NASCET criteria. FINDINGS: Antegrade flow is seen in the bilateral vertebral arteries. The brachial pressures were not obtained. The peak systolic velocity within the right ICA is 66 cm/s. The right systolic ratio is 1.0. The peak systolic velocity within the left ICA is 55 cm/s. The left systolic ratio is 0.7. IMPRESSION: No hemodynamically significant stenosis seen within the carotid arteries. Electronically signed by: Darien Coelho M.D. 05/20/2019 10:17 AM
--- NOTE | 2019-05-20 13:16 | Hospitalist Progress Note ---
Date of Service May 20, 2019 Assessment & Plan (1) Stroke-like symptom: (2) Left sided numbness: Patient is a 58 yr Yi female who has a significant past medical history of recurrent major depressive disorder undergoing ECT and anxiety who presents to [facility] ED secondary to left arm numbness/tingling and left lip numbness since 1 day duration. Stroke like symptoms Presented with left-sided numbness, tingling for 1 day duration --MRI Brain:Periventricular and subcortical white matter T2/FLAIR hyperintensity, nonspecific. This would be advanced for chronic small vessel ischemic change given the patient's age. Differential considerations include demyelinating disease among other possibilities. No acute intracranial abnormality. --Head CT:No significant change compared to the prior study. No acute intracranial abnormality. --Carotid Doppler:No hemodynamically significant stenosis seen within the carotid arteries. --ECHO:pending --Lipid Panel: Total cholesterol 203, LDL 120 --Normal TSH, calcium levels, B 12 > 1999 --Currently undergoing through electroconvulsive therapy for major depression --Quit taking aspirin 81 mg 3 to 4 months ago --Neurology consulted for input --Continue aspirin 81 mg for now --PT/OT Eval (3) Depression: Receiving ECT treatment, last 05/14/[address] Cadena in [place], [place] Currently denies any suicidal thoughts (4) Cough: likely viral Albuterol PRN Monitor for now Leukopenia: Chronic Follow up as outpatient (5) DVT prophylaxis: SCD/TEDS for now Disposition: Expect to discharge home when stable Follow up: PCP Dr. Rain upon discharge along with appropriate psychiatric follow up Subjective Patient is seen and examined at bedside Left arm numbness, tingling resolved Continues to have lip, left facial numbness Denies any weakness, chest pain, shortness of breath, dizziness, dysarthria, dysphagia Family at bedside Offers no other complaints Review of Systems Review of Systems: All systems reviewed & are unremarkable except as noted in HPI & below Physical Exam Physical Exam: Physical Exam: Vitals signs as noted above General Appearance:Thin, Frail, no apparent distress Head: normocephalic, Atraumatic Eyes: normal inspection, EOMI Neck: supple, Trachea midline Respiratory/Chest: Normal breath sounds, CTA Cardiovascular: S1, S2, No murmur Abdomen/GI:Soft, Non tender, Bowel sounds present Extremities/Musculoskelatal:normal inspection, no edema Neurologic/Psych:AAOX3, left facial numbness, otherwise grossly no focal neurological deficits Skin: normal color, warm Results & Data Vital Signs (Past 12 Hours) Vital Signs Temp Pulse Pulse Resp BP Pulse Ox 05/20/19 08:00 68 05/20/19 07:39 36.7 C 71 15 97/63 L 98 05/20/19 04:07 36.7 C 68 18 92/58 L 97 Laboratory Results Short CBC 05/19/19 05/20/19 Range/Units 13:47 05:58 WBC 4.36 L 2.91 L (4.8-10.8) K/uL Hgb 12.8 11.9 L (12.0-16.0) g/dL Hct 37.7 36.1 L (37-47) % Plt Count 148 165 (130-400) K/uL BMP 05/19/19 05/20/19 13:47 05:58 Sodium 142 143 Potassium 3.7 3.9 Chloride 107 107 Carbon Dioxide 28 29 BUN 14 12 Creatinine 0.72 0.72 Glucose 91 92 Calcium 9.3 8.7 Cardiac Enzymes 05/19/19 05/19/19 Range/Units 13:47 17:00 Troponin I < 0.015 < 0.015 (0-0.045) ng/ml Liver Function 05/19/19 Range/Units 13:47 Total Bilirubin 0.5 (0.2-1) mg/dl AST 17 (15-37) U/L ALT 29 (12-78) U/L Alkaline Phosphatase 69 (45-117) U/L Albumin 3.8 (3.4-5.0) gm/dl
[2019-05-20] MEDS ORDERED: clonazePAM 0.5 MG TAB PO STA (13:35)
--- NOTE | 2019-05-20 14:06 | Neurology Consultation ---
Date of Consultation May 20, 2019 Assessment & Plan (1) Stroke-like symptom: 1. MRI with no acute findings- white matter changes likely represent treatment with ECT she has been receiving 2. TTE- 60-65% EF no ASD 3. Carotid doppler no significant stenosis 4. aspirin 81 mg started no on as outpatient 5. B12 - WNL 6. clonazepam 0.5 mg BID for anxiety 7. fall precautions 8. husbands input will be helpful 9. ECT side effects- memory issues, stroke seizure 10. EEG - pending read. 11. out patient work up should include Lyme, ESR, CLYDE, anti-cardiolipin antibody, TRACY, MRI cervical spine with and without contrast and MRI brain with contrast. 12. ok to discharge when medically stable follow up in neurology in 3-4 weeks after discharge Mell Nevarez PAC schedule. (2) Left sided numbness: as above Supervising Physician Co-Signing Physician Notes I have seen and discussed above patient with Dr Mell Elizabeth, neurology. Pt is 3 weeks into 2x week ECT. ECt has markedly escalated her anxiety. No prior hx of neurologic sx. Developed L perioral numbness and L arm burning, numbness 5-6 days post last ECT. Minor ipsilateral headache. Sx have persisted > 24 hours, waxing and waning. MRI brain chronic vascular changes, not typical for demyelinating disease, although out of proportion to age. Pt has known hyperlipidemia but has not been taking her statin. No hx of clotting, miscarriage or vascular headaches. Exam as above. Briefly CN including facial sensation and symmetry are normal. Motor 5/5 and no sensory abnl to LT Post ECT complications can include memory loss, cardiovascular events which could cause stroke and sz. MRi no acute abnl, EEG P, carotid, echo noncontrib. Etiology of sx unclear, query anxiety, query small non-visualized stroke, doubt migrainous. Asa, lipid lowering agent goal LDL<70. Re question of TOP SPOTTER demyelination, hx does not support, changes not typical for fpga design engineer demyelination. Rec labs for mimickers (see above). MRI brain with contrast. MRI C spine. Pt should see us post dc. ROBER Elizabeth MD History of Present Illness Reason for Consultation: cva work up Requesting Physician: Gm Ramirez MD Attending Physician: Gm Ramirez MD History of Present Illness Chetan is a 58 year old Green[place] female with depression and anxiety who presents to [facility] secondary to left arm numbness/tingling and left lip numbness. Last evening she developed left arm numbness and tingling which continued until first thing this morning. When she woke up she also noticed she had left-sided upper and lower lip numbness. Due to symptoms was concerned which prompted them to seek ED for evaluation. Her arm and leg numbness has since resolved but she is complaining she is have burning pain in her arm, her left lip numbness continues but states it is off and on. Due to her significant depression and anxiety she has been receiving ECT treatments by a psychiatrist in [place] last week was the last session. She has had 3 courses of ECT, last being on 05/14. She feels her thinking is not good and she is struggling to talk. Since starting ECT treatments feels she has declined, and he is entertaining not returning to psychiatrist in [place] her anxiety has increased. She has albuterol inhaler at home which she uses because of developing a recent cough. Recently had a URI in which symptoms resolved, but cough lingers. She states her should be her soon and would like our team to talk to him. denies CP, SOB, abdominal pain, one sided weakness, new vision changes, (dry eyes on Restasis), bowel or bladder issues, N, V. + headache off and on Allergies Allergy/AdvReac Type Severity Reaction Status Date / Time No Known Allergies Allergy Unverified 05/19/19 12:38 Home Medications Home Medications Medication Instructions Recorded Confirmed Type Restasis 1 drp OPHTHALMIC (EYE) BID 05/19/19 05/19/19 History albuterol sulfate 1 puff INHALATION Q6H PRN 05/19/19 05/19/19 History clonazepam 0.5 mg PO BID 05/19/19 05/20/19 History multivitamin 1 tab PO QAM 05/19/19 05/19/19 History omega 7-fvm-yyv-fish oil [Fish Oil] 1 cap PO QAM 05/19/19 05/19/19 History aspirin [Ecotrin Low Strength] 81 mg PO QAM 30 Days #30 tab 05/20/19 Rx atorvastatin [Lipitor] 40 mg PO DAILY #30 tab 05/20/19 Rx benzonatate [Tessalon Perles] 100 mg PO Q8H PRN 10 Days #30 cap 05/20/19 Rx Patient History Medical History Anxiety Depression Surgical History History of esophagogastroduodenoscopy (EGD) Family History Father Lung cancer Mother No problems noted. Social History Preferred Language: Mandarin [place]ic Communication Ability: Effective Communication Ability Comment: But does speak Thai Community Liaison Officer Required: No Beliefs That Will Affect Care: None marital status: Current Living Situation: Spouse Other Information That Helps Us Care for You: No Feels Safe at Home: Yes Safety Concerns: Feels Safe At This Time Smoking Status: Never smoker Do You Dip or Chew Tobacco: No ; Second Hand Exposure: No ; Tobacco Cessation Education Requested by Patient: No Hx Alcohol Use: No Hx Substance Use: No Childhood Exposure to Second-Hand Smoke: No Physical Exam Physical Exam: Physical Exam: Constitutional: appearance nourished, healthy and normal Ears, Nose, Mouth and Throat: mucous membranes moist, no injection and skin normal, eyes normal Cardiovascular: normal S-1 and S-2 and regular rate and rhythm Respiratory: clear to auscultation (CTA) and no rales, ronchi or wheeze Musculoskeletal: no peripheral edema and good distal pulses Skin: no stigmata of neurocutaneous disease noted and normal and intact Eyes: extraocular muscles intact (EOMI) and pupils equal, round and reactive to light (PERRL) NEUROLOGIC EXAMINATION: Mental status: Alert and interactive Oriented [facility], May 20. Oriented to person Speech fluent with no evidence of aphasia Cranial Nerves facial symmetry, tongue midline Reflexes: Deep tendon reflexes were symmetrical brisk Sensory: light cool touch vibration Coordination: finger to nose no bipass Gait/Stance: Posture normal. Gait normal: with steady with steps, base, turning, tandem gai t. Motor: Negative for pronator drift of out stretched arms with eyes closed. Strength: biceps triceps hand beach lifeguard 5/5 bilaterally, hip flex patellar flex ext plantar flex ext 5/5 bilaterally Results & Data Vital Signs (Past 12 Hours) Vital Signs Temp Pulse Pulse Resp BP Pulse Ox 05/20/19 08:00 68 05/20/19 07:39 36.7 C 71 15 97/63 L 98 05/20/19 04:07 36.7 C 68 18 92/58 L 97 Laboratory Results Abnormal lab results 05/19/19 05/19/19 05/20/19 Range/Units 13:47 17:00 05:58 WBC 2.91 L (4.8-10.8) K/uL RBC 3.74 L (4.2-5.4) M/uL Hgb 11.9 L (12.0-16.0) g/dL Hct 36.1 L (37-47) % Lymph # (Auto) 1.05 L (1.2-3.4) K/uL Magnesium 2.7 H (1.8-2.4) mg/dl Cholesterol (0-200) mg/dl Vitamin B12 > 2000 H (211-911) pg/ml 05/20/19 Range/Units 05:58 WBC (4.8-10.8) K/uL RBC (4.2-5.4) M/uL Hgb (12.0-16.0) g/dL Hct (37-47) % Lymph # (Auto) (1.2-3.4) K/uL Magnesium (1.8-2.4) mg/dl Cholesterol 203 H (0-200) mg/dl Vitamin B12 (211-911) pg/ml Diagnostic Findings CT head- no significant change compared to the prior study. No acute intracranial abnormality MRI brain- Periventricular and subcortical white matter T2/FLAIR hyperintensity, nonspecific. This would be advanced for chronic small vessel ischemic change given the patient's age. Differential considerations include demyelinating disease among other possibilities. No acute intracranial abnormality. carotid doppler- no hemodynamically significant stenosis seen within the carotid arteries.
[2019-05-20] MEDS ORDERED: COUGH DROP (SUGAR FREE) LOZ 24 LOZ/1 BOX BUCCAL PRN (16:37)
[2019-05-20] MEDS ORDERED: STROKE PATIENT DISCHARGE STA (16:51)
--- NOTE | 2019-05-20 16:56 | Discharge Summary ---
Date of Service May 20, 2019 Admission HPI Per Admitting Provider This is a 58-year-old [place] female who has a significant past medical history of recurrent MDD and anxiety who presents to [facility] ED secondary to left arm numbness/tingling and left lip numbness since last evening. is at bedside. Patient elicits starting last evening she developed left arm numbness and tingling which continued until first thing this morning. When she woke up she also noticed she had left-sided upper and lower lip numbness. Due to symptoms was concerned which prompted them to seek ED for evaluation. Upon my evaluation patient's left arm numbness and tingling has since resolved, but her left lip numbness is still present. She denies having previous symptoms in the past. Due to her significant depression and anxiety she has been receiving ECT treatments by a psychiatrist in [place]. She has had 3 courses of ECT, last being on 05/14. feels she has been more, "befuddled," since the treatments and her mentation is less clear, but not ove rly confused. Since starting ECT treatments he feels she has declined, and he is entertaining not returning to psychiatrist in [place]. Feels her anxiety has heightened. With associated symptoms she and her deny any slurred speech or extremity weakness, facial droop, difficulty ambulating, or prior history of CVA. She does complain of cough for the past 2 to 3 weeks. Elicits she has albuterol inhaler at home which she uses. Recently had a URI in which symptoms resolved, but cough lingers. She denies any fever, chills, sweats, lightheadedness, dizziness, syncope, chest pain, palpitations, shortness of breath, JUNIOR, hemoptysis, nausea, vomiting, diarrhea, abdominal pain, dysuria, increased urgency or frequency with urination, melena, hematochezia. She does occasionally have constipation. Feels after her ECT treatment she gets nauseated. Denies prior history of HTN, HLD or family history of CVA. Denies history of tobacco abuse, alcohol or recreational drug use. In ED patient's lab work relatively unremarkable including CBC, CMP, TSH, EKG. Magnesium slightly elevated at 2.7. Head CT negative for any acute abnormality. Mild chronic microvascular ischemic change noted and unchanged. In ED she received full-strength aspirin as well as IVF. Admission Exam Per Admitting Provider Constitutional: WD/WN, petite, female, vitals as above, NAD, sitting up in bed, pleasant, conversing easily Head: Normocephalic, Atraumatic Eyes: PERRL, conjunctivae normal, anicteric sclerae ENMT: external ear and nose normal, oropharynx normal Neck: trachea midline, no thyromegaly normal visual inspection Respiratory: normal respiratory effort, lungs clear to auscultation, no wheeze, rales, rhonchi. Normal insp/exp effort, no accessory muscle use Cardiovascular: RRR, no murmur, no edema Vessels: no JVD or carotid bruit Chest: normal inspection of chest Abdomen: normal bowel sounds, soft, nontender, no hepatosplenomegaly Musculoskeletal: no cyanosis or clubbing, extremities motor strength 5/5 Skin: no rashes, warm and dry normal turgor Neurologic: PERRL, EOMI, accommodation nl, no face palsy, no dysarthria CN's II-XI intact bilaterally and moves all extremities Psychiatric: A+Ox3, euthymic affect Lymphatic: no cervical or axillary lymphadenopathy : deferred Principal Diagnosis Stroke like Symptoms Discharge Data Allergies Allergy/AdvReac Type Severity Reaction Status Date / Time No Known Allergies Allergy Unverified 05/19/19 12:38 Consultations 05/19/19 16:19 ED Decision to Admit Stat 05/19/19 16:55 Consult Neurology Routine 05/19/19 19:54 Consult Case Management - Discharge Planning Routine Procedures Performed Head CT: No significant change compared to the prior study. No acute intracranial abnormality. Carotid Doppler: No hemodynamically significant stenosis seen within the carotid arteries. ECHO: No thrombus, EF:60-65%, Mild MR, Mild TR MRI Brain: Periventricular and subcortical white matter T2/FLAIR hyperintensity, nonspecific. This would be advanced for chronic small vessel ischemic change given the patient's age. Differential considerations include demyelinating disease among other possibilities. No acute intracranial abnormality. Ordered Studies 05/19/19 14:01 CT head/brain wo con Stat 05/19/19 16:55 MR brain wo con Routine 05/20/19 08:00 US carotid doppler BI Routine Hospital Course (1) Stroke-like symptom: (2) Left sided numbness: Patient is a 58 yr [place] female who has a significant past medical history of recurrent major depressive disorder undergoing ECT and anxiety who presents to [facility] ED secondary to left arm numbness/tingling and left lip numbness since 1 day duration. Stroke like symptoms Presented with left-sided numbness, tingling for 1 day duration --MRI Brain:Periventricular and subcortical white matter T2/FLAIR hyperintensity, nonspecific. This would be advanced for chronic small vessel ischemic change given the patient's age. Differential considerations include demyelinating disease among other possibilities. No acute intracranial abnormality. --Head CT:No significant change compared to the prior study. No acute intracranial abnormality. --Carotid Doppler:No hemodynamically significant stenosis seen within the carotid arteries. --ECHO: No thrombus, EF:60-65%, Mild MR, Mild TR --Lipid Panel: Total cholesterol 203, LDL 120 --Normal TSH, calcium levels, B 12 > 1999 --EEG:pending --Currently undergoing through electroconvulsive therapy for major depression --Quit taking aspirin 81 mg 3 to 4 months ago --Neurology consulted for input --Started on aspirin 81 mg and Lipitor 40mg as per Neurology Recommendations --PT/OT Eval --Outpatient work up planned as per Neurology: Lyme, ESR, CLYDE, acetylcholine AB, TRACY, MRI spine with and without contrast and MRI brain with contrast. --Needs follow up with Neurology upon discharge (3) Depression: Receiving ECT treatment, last 05/14/[address] Cadena in [place], [place] Currently denies any suicidal thoughts (4) Cough: likely viral Albuterol PRN Monitor for now Leukopenia: Chronic Follow up as outpatient (5) DVT prophylaxis: SCD/TEDS for now Disposition: Plan to discharge home today Patient agrees with getting further work up as outpatient and agrees with current plan. Follow up: PCP Dr. Rain upon discharge along with appropriate psychiatric follow up Neurology: Mell Nevarez on Jun 09, 2019 scheduled Total Time Total Time Spent Total Time Spent (In Minutes): 28 minutes Total Time Includes: Examination of the Patient, Discharge Planning, Medication Reconciliation, Communication With Other Providers and Other Discharge Plan Discharge Items Patient Disposition: Home - Self-Care Reason For Visit: NEURO SX, CVA WORK UP Discharge Diagnosis: Stroke like Symptoms Activity: Resume your previous activity Exercise/Sports: Gradually increase as tolerated Driving/Machine Use: No driving until cleared by your Neurologist Non-emergency contact: Primary Care Provider and Neurologist Call non-emergency contact if: you have any medication questions, your symptoms worsen, your pain is not controlled, your pain is worsening, your pain is unusual for you, your pain is concerning for you and you have a fever Follow-up/Referrals: Azalia Rain, [Primary Care Provider] - Diet: Heart Healthy Addtl Attending Provider Instructions: Follow up with your Primary Care Physician on May 23, 2019 at 12:45 Pm Follow up with your Neurologist Mell Nevarez on June 09, 2019 at 10:25 Am Follow up with your Psychiatrist as advised You are started on aspirin 81mg and lipitor 40mg daily as per recommendations from your Neurologist Get further work up as per your Neurologist as outpatient (Lyme, ESR, CLYDE, acetylcholine AB, TRACY, MRI spine with and without contrast and MRI brain with contrast.) Your Electroencephalogram (EEG) is pending at the time of discharge. Follow up with your Neurologist for results Seek immediate medical attention if your symptoms reoccur or worsen Risk Factors for Stroke: You can reduce your chances of stroke by working with your medical provider to adopt a healthy lifestyle. Some specific ways to lower your chance of stroke are: * If you are a smoker, now is the time to stop smoking cigarettes * If you are diabetic, improve the control of your blood sugars * Avoid excessive amounts of alcohol * Control high blood pressure * Lose weight if you are overweight * Be sure to lead an active lifestyle * Eat a healthy diet low in salt, cholesterol and fat You should know about other risk factors for stroke that you are unable to control. These include: * Age 55 years or older * Male gender * Certain racial groups: , or / * Family History of Stroke, Mini stroke or Heart Attack * Sickle Cell Disease Follow Up: It is important for you to keep your follow up appointments with your medical pr ovider. Who to Call and When: Medical Emergencies: Call 911 immediately if you experience any of the following warning signs and symptoms of Stroke: * Sudden numbness or weakness of the face, arm or leg, especially on one side of the body * Sudden confusion, trouble speaking or understanding * Sudden trouble seeing in one or both eyes * Sudden trouble walking, dizziness, loss of balance or coordination * Sudden severe headache with no cause Do not delay calling 911 if you experience any warning signs or symptoms of a stroke. Delay in seeking medical attention may affect what treatments can be given to you. . Pending Studies at Discharge: Yes Studies:: EEG Stand-Alone Forms: Medications to Prevent Stroke, My [facility] Medications and DC Order Prescriptions: New aspirin [Ecotrin Low Strength] 81 mg Tablet,Delayed Release (Dr/Ec) 81 mg PO QAM 30 Days Qty: 30 RF: 0 benzonatate [Tessalon Perles] 100 mg Capsule 100 mg PO Q8H PRN (Reason: cough) 10 Days Qty: 30 RF: 0 atorvastatin [Lipitor] 40 mg tablet 40 mg PO DAILY Qty: 30 RF: 0 Continued multivitamin Tablet 1 tab PO QAM RF: 0 clonazepam 0.5 mg tablet 0.5 mg PO BID RF: 0 Restasis 0.05 % dropperette 1 drp ophthalmic (eye) BID RF: 0 omega 3-uce-hpa-fish oil [Fish Oil] 1,000 mg (120 mg-180 mg) Capsule 1 cap PO QAM RF: 0 albuterol sulfate 90 mcg/actuation Hfa Aerosol Inhaler 1 puff INHALATION Q6H PRN (Reason: Cough) RF: 0 Discharge Orders: Discharge Order (Routine); Ordered 05/20/19 Ordered By: Gm Padron/Other Patient Handouts: Falls Prevent Home Admission Data Admit Date/Time: 05/19/19 16:55 Attending Provider: Gm Ramirez Admit Provider: Richard Rodas Primary Care Provider: Azalia Rain Other Providers: Mell Elizabeth ; Richard Rodas Other Interventions: Discharge Summary Assessment (RN) Last Done: 05/20/19 16:55
--- NOTE | 2019-05-20 18:55 | Pharmacy Report ---
Pharmacist Stroke Counseling - Date of Service May 20, 2019 - Scope: Pharmacy has been consulted to provide medication discharge counseling for this patient admitted with stroke-like symptoms as per the Pharmacist Discharge Counseling for Stroke Patients Protocol. - Medications on Discharge: Home Medications Medication Instructions Recorded Confirmed Restasis 1 drp OPHTHALMIC (EYE) BID 05/19/19 05/19/19 albuterol sulfate 1 puff INHALATION Q6H PRN 05/19/19 05/19/19 clonazepam 0.5 mg PO BID 05/19/19 05/20/19 multivitamin 1 tab PO QAM 05/19/19 05/19/19 omega 3-osu-hxl-fish oil [Fish Oil] 1 cap PO QAM 05/19/19 05/19/19 New Rx's Medication Instructions Recorded aspirin [Ecotrin Low Strength] 81 mg PO QAM 30 Days #30 tab 05/20/19 atorvastatin [Lipitor] 40 mg PO DAILY #30 tab 05/20/19 benzonatate [Tessalon Perles] 100 mg PO Q8H PRN 10 Days #30 cap 05/20/19 - Action: The above medications, specifically ones for stroke treatment/prophylaxis, have been reviewed in detail with the patient and/or patient high school admissions representative(s) prior to discharge. This includes indication, common adverse reactions, drug interactions, and medication administration. Medication counseling has been employed using the teach-back method to ensure understanding. - Outcome: The patient and/or patient high school admissions representative(s) have demonstrated understanding of the medications. Please note, they are aware that the pharmacist will call them within 72 hours post-discharge to confirm that the appropriate medications are being taken and answer any further medication related questions the patient might have at that time. Contact information Individual to be contacted: Georgi Cohen Relationship to patient (if applicable): Phone number: [phone] Best time to call: after 8am Thank you for allowing pharmacy to be involved in the care of this patient. Please call [phone] or [phone] with any additional questions
[2019-05-20] MEDS ORDERED: clonazePAM 0.5 MG TAB PO SCH (21:00)
--- NOTE | 2019-05-21 16:17 | Electroencephalogram ---
EEG Procedure Note Date of Service May 21, 2019 Start / End Times Start Time: 08:30 End Time: 08:[address] Gm Ramirez History A 58 year old woman admitted to [facility]. EEG performed for evaluation of epileptiform activity. Home Medication List Home Medications Medication Instructions Recorded Confirmed Type Restasis 1 drp OPHTHALMIC (EYE) BID 05/19/19 05/19/19 History albuterol sulfate 1 puff INHALATION Q6H PRN 05/19/19 05/19/19 History clonazepam 0.5 mg PO BID 05/19/19 05/20/19 History multivitamin 1 tab PO QAM 05/19/19 05/19/19 History omega 9-wgn-noo-fish oil [Fish Oil] 1 cap PO QAM 05/19/19 05/19/19 History aspirin [Ecotrin Low Strength] 81 mg PO QAM 30 Days #30 tab 05/20/19 Rx atorvastatin [Lipitor] 40 mg PO DAILY #30 tab 05/20/19 Rx benzonatate [Tessalon Perles] 100 mg PO Q8H PRN 10 Days #30 cap 05/20/19 Rx Inpatient Medication List Discontinued Medications Albuterol (Ventolin Hfa) 2 puffs INH NOW ONE Stop: 05/19/19 16:46 Last Admin: 05/19/19 18:05 Dose: 2 puffs Documented by: [id number] Aspirin (Aspirin) 324 mg PO NOW STA Stop: 05/19/19 16:20 Last Admin: 05/19/19 17:02 Dose: 324 mg Documented by: [id number] Aspirin (Ecotrin Ectab) 81 mg PO QAM [place] Stop: 06/19/19 08:59 Last Admin: 05/20/19 07:36 Dose: 81 mg Documented by: [id number] Benzonatate (Tessalon Perle) 100 mg PO Q8H PRN PRN Reason: Cough Stop: 06/18/19 19:53 Last Admin: 05/20/19 09:03 Dose: 100 mg Documented by: [id number] Clonazepam (Klonopin) 0.5 mg PO DAILY [place] Stop: 06/19/19 08:59 Last Admin: 05/20/19 09:54 Dose: Not Given Documented by: [id number] Clonazepam (Klonopin) 0.5 mg PO NOW STA Stop: 05/20/19 13:36 Last Admin: 05/20/19 14:03 Dose: 0.25 mg Documented by: [id number] Fish Oil (Providence-3 (Purified Fish Oil)) 1 gm PO QAM [facility] Stop: 06/19/19 08:59 Last Admin: 05/20/19 07:37 Dose: 1 gm Documented by: [id number] Sodium Chloride (Nss 1000ml) 500 mls @ 999 mls/hr IV .Q31M ONE Stop: 05/19/19 14:31 Last Infusion: 05/19/19 14:52 Dose: 0 mls/hr Documented by: [id number] Admin: 05/19/19 14:18 Dose: 999 mls/hr Documented by: [id number] Influenza Virus Vaccine Quadrival (Flucelvax Quad Vaccine) 0.5 ml IM .ONCE ONE Stop: 05/19/19 20:46 Last Admin: 05/20/19 10:24 Dose: 0.5 ml Documented by: [id number] Miscellaneous (Order Awaiting Action) 1 ea N/A QS [facility] Stop: 06/19/19 00:00 Last Admin: 05/20/19 15:21 Dose: Not Given Documented by: [id number] Admin: 05/20/19 08:46 Dose: Not Given Documented by: [id number] Admin: 05/20/19 00:29 Dose: Not Given Documented by: [id number] Multivitamins (Multivitamin Tab) 1 tab PO QAWW [facility] Stop: 06/19/19 08:59 Last Admin: 05/20/19 07:36 Dose: 1 tab Documented by: [id number] Description This is a 21 electrode EEG with a single channel dedicated to limited EKG. The electrodes were placed in accordance with the International 10-20 system. REPORT: At the onset of the EEG the patient is awake. The posterior dominant rhythm is 9-10 Hz. There is a normal anterior to posterior gradient with indeterminant low amplitude faster frequencies anteriorly. Photic stimulation does not elicit any abnormalities. Drowsiness is characterized by decreased myogenic artifact and increased theta activity. IMPRESSION: This is a normal awake and drowsy EEG. No epileptiform activity is recorded.
--- NOTE | 2019-05-22 16:16 | Pharmacy Report ---
Pharmacist Post D/C Phone Note - Phone Note: Date of phone call: May 22, 2019. Individual with whom pharmacist spoke to: Georgi Cohen () The following questions were reviewed during the phone call with responses listed below each: Can you tell me the medications that you are currently taking as well as when and how you take each medication? -See Table Below -- updated and correct When have you missed any doses of your medications? - no What side effects are you having from your medications, specifically, the new medications you were started on? - none What questions do you have about your medications? - none at this time What problems are you having obtaining your medications? - none - all have been picked up When is your next appointment with your primary care doctor? - pt sees her PCP tomorrow (05/23) Additional comments: - states that patient has been pretty quiet since discharge. She will see her PCP tomorrow for f/u. As per the Pharmacist Discharge Counseling for Stroke Patients Protocol, this phone call has been completed within 72 hours of discharge. Thank you for allowing us to be involved in the care of this patient. - Home Medications: Home Medications Medication Instructions Recorded Confirmed Restasis 1 drp OPHTHALMIC (EYE) BID 05/19/19 05/19/19 albuterol sulfate 1 puff INHALATION Q6H PRN 05/19/19 05/19/19 clonazepam 0.5 mg PO BID 05/19/19 05/20/19 multivitamin 1 tab PO QAM 05/19/19 05/19/19 omega 2-ykc-lxk-fish oil [Fish Oil] 1 cap PO QAM 05/19/19 05/19/19 New Rx's Medication Instructions Recorded aspirin [Ecotrin Low Strength] 81 mg PO QAM 30 Days #30 tab 05/20/19 atorvastatin [Lipitor] 40 mg PO DAILY #30 tab 05/20/19 benzonatate [Tessalon Perles] 100 mg PO Q8H PRN 10 Days #30 cap 05/20/19
== END 2019-05-20 17:18 | disposition home or self-care (01) ==
LOC: 2N 12:07 → ED 12:07 → SUATTDRO 16:55 → 2N 19:17